=== PATIENT | female | born 1960 | race Caucasian/White ===

== ENCOUNTER 2021-11-01 16:18 | Emergency (ER) | payer OTHER, SELFPAY ==
--- NOTE | 2021-11-01 | ECG_ITS ---
Test Reason : A-FIB Blood Pressure : / mmHG Vent. Rate : 086 BPM Atrial Rate : 000 BPM P-R Int : 000 ms QRS Dur : 098 ms QT Int : 382 ms P-R-T Axes : 000 035 -86 degrees QTc Int : 457 ms Atrial fibrillation with a competing junctional pacemaker Incomplete right bundle branch block ST & T wave abnormality, consider inferior ischemia ST & T wave abnormality, consider anterolateral ischemia Abnormal ECG No previous ECGs available Referred By: Generic ED Physician Electronically Signed By:STEPHON CASTAÑEDA MD
[2021-11-01 16:33] VITALS: BP 122/80; PULSE 97; RESP 18; TEMP 36.6; O2SAT 98; BMI 31.6
[2021-11-01 16:53] LABS: MANUAL DIFF FLAG NO
[2021-11-01 17:10] LABS: Basophils Absolute Auto 0.1 X10*3/uL (0.0-0.2); Basophils Percent Auto 0.8 % (0-2); Eosinophils Absolute Auto 0.1 X10*3/uL (0.0-0.4); Eosinophils Percent Auto 1.1 % (0-4); Hematocrit 40.5 % (37.0-47.0); Hemoglobin 14.4 g/dl (12.0-16.0); Imm Gran Abs Auto 0.04 X10*3/uL (0.00-0.03); Imm Gran Pct Auto 0.5 % (0.0-0.4); Lymphocytes Absolute Auto 0.7 X10*3/uL (1.2-4.9); Lymphocytes Percent Auto 8.9 % (20-40); Mean Corpuscular HGB Conc 35.6 g/dl (31.0-35.0); Mean Corpuscular Hemoglobin 40.9 pg (27.0-33.0); Monocytes Absolute Auto 0.6 X10*3/uL (0.1-1.2); Monocytes Percent Auto 7.3 % (2-11); NRBC Pct Auto 0.3 /100WBC (0.0-0.2); Neutrophils Absolute Auto 6.5 x10*3/uL (2.0-8.3); Neutrophils Percent Auto 81.4 % (45-73); Platelet Count 127 X10*3/uL (160-400); Red Blood Count 3.52 X10*6/uL (4.20-5.50); Red Cell Distribution Width 12.2 % (11.0-16.0)
[2021-11-01 17:25] LABS: Alanine Aminotransferase 54 U/L (0-31); Albumin Level 3.9 g/dL (3.5-5.0); Alkaline Phosphatase 110 U/L (39-117); Anion Gap 17 (12-20); Aspartate Amino Transferase 60 U/L (5-31); Bilirubin Total 1.6 mg/dL (0.0-1.0); Blood Urea Nitrogen 9 mg/dL (9-16); Calcium 9.3 mg/dL (8.4-10.2); Carbon Dioxide 23 mmol/L (22-29); Chloride 98 mmol/L (96-108); Estimated Glomerular Filt Rate 43; Glucose Random 146 mg/dL (60-115); Potassium 4.3 mmol/L (3.3-5.1); Sodium 134 mmol/L (135-145); Total Protein 7.8 g/dL (6.5-8.0)
[2021-11-01 17:28] LABS: Mean Corpuscular Volume 115.1 fL (80.0-98.0)
== END 2021-11-01 20:48 | disposition left against medical advice (07) ==
PROVIDERS: Emergency Provider Emergency Medicine; PCP Internal Medicine
DX: I48.91 Unspecified atrial fibrillation (principal); I95.9 Hypotension, unspecified
CPT/HCPCS: 36415; 80053; 85025; 93005; 99283

== ENCOUNTER 2022-10-21 13:11 | Outpatient (REF) | payer OTHER, SELFPAY ==
[2022-10-21 13:22] LABS: MANUAL DIFF FLAG NO
[2022-10-21 14:12] LABS: Basophils Absolute Auto 0.1 X10*3/uL (0.0-0.2); Basophils Percent Auto 2.3 % (0-2); Eosinophils Absolute Auto 0.1 X10*3/uL (0.0-0.4); Eosinophils Percent Auto 2.5 % (0-4); Hematocrit 40.1 % (37.0-47.0); Imm Gran Abs Auto 0.02 X10*3/uL (0.00-0.03); Imm Gran Pct Auto 0.4 % (0.0-0.4); Lymphocytes Absolute Auto 0.7 X10*3/uL (1.2-4.9); Mean Corpuscular HGB Conc 34.9 g/dl (31.0-35.0); Mean Corpuscular Hemoglobin 38.4 pg (27.0-33.0); Mean Corpuscular Volume 109.9 fL (80.0-98.0); Mean Platelet Volume 9.5 fL (9.4-12.3); Monocytes Absolute Auto 0.7 X10*3/uL (0.1-1.2); Monocytes Percent Auto 13.4 % (2-11); Neutrophils Absolute Auto 3.2 x10*3/uL (2.0-8.3); Neutrophils Percent Auto 66.4 % (45-73); Platelet Count 311 X10*3/uL (160-400); Red Blood Count 3.65 X10*6/uL (4.20-5.50); Red Cell Distribution Width 11.8 % (11.0-16.0); White Blood Count 4.9 X10*3/uL (4.8-10.8)
[2022-10-21 15:09] LABS: Alanine Aminotransferase 33 U/L (0-31); Albumin Level 3.5 g/dL (3.5-5.0); Alkaline Phosphatase 87 U/L (39-117); Anion Gap 14 (12-20); Aspartate Amino Transferase 25 U/L (5-31); Bilirubin Total 0.7 mg/dL (0.0-1.0); Blood Urea Nitrogen 10 mg/dL (9-16); Calcium 9.5 mg/dL (8.4-10.2); Carbon Dioxide 26 mmol/L (22-29); Chloride 101 mmol/L (96-108); Estimated Glomerular Filt Rate 55; Glucose Random 112 mg/dL (60-115); Potassium 4.5 mmol/L (3.3-5.1); Sodium 136 mmol/L (135-145); Total Protein 6.9 g/dL (6.5-8.0)
[2022-10-21 15:26] LABS: Free T4 (Free Thyroxine) 1.09 ng/dL (0.71-1.85); Thyroid Stimulating Hormone 3.31 uIU/mL (0.32-4.0)
[2022-10-21 15:28] LABS: Magnesium 1.4 mg/dL (1.6-2.6)
== END 2022-10-21 13:12 | disposition home or self-care (01) ==
LOC: HO.LAB 13:11
PROVIDERS: PCP Internal Medicine; Visit Provider Internal Medicine
DX: I48.91 Unspecified atrial fibrillation (principal); E03.9 Hypothyroidism, unspecified; D69.6 Thrombocytopenia, unspecified; E87.1 Hypo-osmolality and hyponatremia
CPT/HCPCS: 36415; 80053; 83735; 84439; 84443; 85025

== ENCOUNTER 2022-11-28 13:03 | Outpatient (REF) | payer OTHER, SELFPAY ==
[2022-11-28 15:37] LABS: Anion Gap 14 (12-20); Blood Urea Nitrogen 21 mg/dL (9-16); Calcium 9.9 mg/dL (8.4-10.2); Carbon Dioxide 25 mmol/L (22-29); Chloride 103 mmol/L (96-108); Estimated Glomerular Filt Rate 56; Glucose Random 105 mg/dL (60-115); Magnesium 1.9 mg/dL (1.6-2.6); Potassium 4.1 mmol/L (3.3-5.1); Sodium 138 mmol/L (135-145)
[2022-11-28 15:50] LABS: Free T4 (Free Thyroxine) 0.92 ng/dL (0.71-1.85); Vitamin B12 397 pg/mL (200-900)
== END 2022-11-28 13:04 | disposition home or self-care (01) ==
LOC: HO.LAB 13:03
PROVIDERS: PCP Internal Medicine; Visit Provider Internal Medicine
DX: E83.42 Hypomagnesemia (principal); I48.91 Unspecified atrial fibrillation; E53.8 Deficiency of other specified B group vitamins
CPT/HCPCS: 36415; 80048; 82607; 83735; 84439; 84443

== ENCOUNTER 2023-01-21 13:11 | Outpatient (REF) | payer OTHER, SELFPAY ==
[2023-01-21 13:21] LABS: MANUAL DIFF FLAG NO
[2023-01-21 14:10] LABS: Basophils Absolute Auto 0.1 X10*3/uL (0.0-0.2); Basophils Percent Auto 1.7 % (0-2); Eosinophils Absolute Auto 0.3 X10*3/uL (0.0-0.4); Eosinophils Percent Auto 4.8 % (0-4); Hemoglobin 14.7 g/dl (12.0-16.0); Imm Gran Abs Auto 0.02 X10*3/uL (0.00-0.03); Imm Gran Pct Auto 0.3 % (0.0-0.4); Lymphocytes Absolute Auto 1.1 X10*3/uL (1.2-4.9); Lymphocytes Percent Auto 18.3 % (20-40); Mean Corpuscular HGB Conc 32.7 g/dl (31.0-35.0); Mean Corpuscular Hemoglobin 30.9 pg (27.0-33.0); Mean Corpuscular Volume 94.7 fL (80.0-98.0); Mean Platelet Volume 9.9 fL (9.4-12.3); Monocytes Absolute Auto 0.7 X10*3/uL (0.1-1.2); Monocytes Percent Auto 11.6 % (2-11); Neutrophils Absolute Auto 3.7 x10*3/uL (2.0-8.3); Neutrophils Percent Auto 63.3 % (45-73); Platelet Count 234 X10*3/uL (160-400); Red Blood Count 4.75 X10*6/uL (4.20-5.50); Red Cell Distribution Width 11.6 % (11.0-16.0); White Blood Count 5.8 X10*3/uL (4.8-10.8)
[2023-01-21 15:40] LABS: Alanine Aminotransferase 20 U/L (0-31); Albumin Level 3.8 g/dL (3.5-5.0); Alkaline Phosphatase 150 U/L (39-117); Anion Gap 14 (12-20); Aspartate Amino Transferase 21 U/L (5-31); Bilirubin Total 0.6 mg/dL (0.0-1.0); Blood Urea Nitrogen 22 mg/dL (9-16); Calcium 10.7 mg/dL (8.4-10.2); Carbon Dioxide 25 mmol/L (22-29); Chloride 103 mmol/L (96-108); Cholesterol 184 mg/dL; Estimated Glomerular Filt Rate > 60; Glucose Fasting 99 mg/dL (60-99); HDL Cholesterol 49 mg/dL; LDL Cholesterol Calculated 115 mg/dl; Magnesium 1.9 mg/dL (1.6-2.6); Potassium 4.2 mmol/L (3.3-5.1); Sodium 138 mmol/L (135-145); Total Protein 8.2 g/dL (6.5-8.0); Triglycerides 102 mg/dL
[2023-01-21 15:56] LABS: Free T4 (Free Thyroxine) 0.97 ng/dL (0.71-1.85)
== END 2023-01-21 13:12 | disposition home or self-care (01) ==
LOC: HO.LAB 13:11
PROVIDERS: PCP Internal Medicine; Visit Provider Internal Medicine
DX: I48.91 Unspecified atrial fibrillation (principal); E03.9 Hypothyroidism, unspecified; I12.9 Hypertensive chronic kidney disease with stage 1 through stage 4 chronic kidney disease, or unspecified chronic kidney disease; N18.9 Chronic kidney disease, unspecified
CPT/HCPCS: 36415; 80053; 80061; 83735; 84439; 84443; 85025

== ENCOUNTER 2023-02-17 13:48 | Outpatient (AMB) | payer OTHER, SELFPAY ==
[2023-02-17 14:06] VITALS: BP 160/90; BMI 27.0
--- NOTE | 2023-02-17 14:06 | A.OFFVIS_ITS ---
Intake Vital Signs 02/17/23 14:06 Height 5 ft 9 in Weight 182 lb 15.739 oz BMI 27.0 BP 160/90 H Blood Pressure Location Lt brachial Position Sitting Intake Visit Reasons: NPV/Croke/AFIB Intake Note: npv/croke/afib [employer] Consultant Required: No Allergies codeine Allergy (Verified 02/17/23 14:15) Unknown Medication List - Last Reconciled 02/17/23 by Jluis Todd MD apixaban (Eliquis) 5 mg PO BID levothyroxine 25 mcg PO DAILY metoprolol tartrate 50 mg PO DAILY HPI HPI Comments History of Present Illness Details Thank you for referring Maria Elena in cardiology consultation today for management of atrial fibrillation. 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 She was admitted in September at [facility] with severe dehydration related to gastroenteritis. At that time she was told that she was in atrial fibrillation. However reviewing her EKG from last October at [facility] she was in atrial fibrillation at that time. Since then her medications with change due to what appears to be acute kidney injury and hypertension. She was taken off her lisinopril and nifedipine and reducing metoprolol dose. She was advised to follow-up with you. At that time she was started on Eliquis therapy and metoprolol has been gradually increased. She says a blood pressure has been increasing ever since. She has strong family his tory of atrial fibrillation in the sister who has atrial fibrillation. Both her parents had congestive heart failure and possible atrial fibrillation. She says she has had hypertension treated for about 8 years. She currently denies any symptoms of palpitations. Denies also symptoms of any exertional fatigue or shortness of breath. No orthopnea, PND, leg edema. She denies any lightheadedness, syncope. No bleeding issues or neurologic events. She has been taking all her medications regularly, currently taking metoprolol 100 mg the morning and 75 mg at nighttime. [facility] Medical History HTN (hypertension) Persistent atrial fibrillation Family History Sister A-fib Father CHF (congestive heart failure) Mother CHF (congestive heart failure) Social History Alcohol intake: never Patient Tobacco Use Status: Never used Tobacco Review of Systems Const Denies chills, Denies daytime sleepiness, Denies fatigue, Denies fever(s), Denies frequent falls, Denies night sweats, Denies snoring, Denies weakness, Denies weight gain and Denies weight loss Eyes Denies loss of vision ENT Denies dizziness and Denies hearing loss Card Denies chest pain, Denies chest pain with activity, Denies syncope, Denies rapid heart rate, Denies edema, Denies claudication, Denies leg edema, Denies lightheadedness, Denies palpitations, Denies dyspnea, Denies dyspnea on exertion and Denies orthopnea Resp Denies cough, Denies excessive phlegm production, Denies dyspnea, Denies dyspnea on exertion, Denies snoring and Denies wheezing GI Denies abdominal pain, Denies hematochezia, Denies change in bowel habits, Denies change in stool character, Denies heartburn, Denies nausea and Denies vomiting Denies hematuria, Denies urinary frequency and Denies dysuria Musc Denies arthralgias, Denies muscle weakness, Denies numbness and Denies tingling Skin/Breast Denies nail changes and Denies rash Neuro Denies Abnormal speech present, Denies dizziness, Denies syncope, Denies frequent falls, Denies loss of vision, Denies memory loss, Denies numbness, Denies tingling and Denies weakness Psych Denies depression and Denies memory loss Endo Denies fatigue and Denies palpitations Aller/Immun Denies wheezing Physical Exam Vital Signs: Last Vital Signs BP 160/90 H 02/17/23 14:06 BMI result Body Mass Index 27.0 Const General: cooperative, comfortable, no acute distress, alert, awake and well groomed Nutritional Appearance: overweight Orientation/consciousness: patient oriented x3 Limitations: no limitations HEENT Head: Yes normocephalic and Yes atraumatic Neck Neck: Yes trachea midline, Yes supple and Yes no JVD Resp Effort & Inspection: normal respiratory effort Auscultation: clear to auscultation bilaterally Cardio Jugular venous distension: no JVD Palpation: normal PMI Rhythm: abnormal rhythm irregularly irregular Heart sounds: S1 normal heart sound present, S2 normal heart sound present, no click, no gallops, no murmurs and no rubs GI Auscultation: normal bowel sounds Skin General skin exam: no rashes or lesions noted Neuro General: patient oriented x3 and no focal motor deficits Speech: No Abnormal speech present Extrem General: Yes no clubbing, cyanosis or edema Psych Appearance: grossly normal Office Procedures EKG Details: EKG shows atrial fibrillation with incomplete right bundle-branch block with diffuse ST T wave changes which may suggest repolarization abnormality [id number], Complete Assessment & Plan Assessment & Plan (1) Persistent atrial fibrillation: Code(s): I48.19 - Other persistent atrial fibrillation Plan: Persistent atrial fibrillation this middle-aged woman with prior history of hypertension. Unknown biatrial chamber size. She thinks she had an echocardiogram she was hospitalized at [facility]. Will try to obtain the same. If not will obtain echocardiogram to assess LV systolic function and biatrial chamber size that will determine further therapy. Meanwhile will increase metoprolol to 100 mg b.i.d. both for better rate control as well as for better blood pressure control. Advised to monitor blood pressure at home, see below. She has appropriately been started on oral anticoagulation therapy with Eliquis. Risk of thromboembolic complication was discussed with her. Pathophysiology of atrial fibrillation was discussed. We discussed in general recent scientific data suggesting in patients with new onset atrial fibrillation although it seems like she might have had atrial fibrillation for greater than a year to pursue rhythm control approach. However if she has significant biatrial enlargement will require antiarrhythmic drug support therapy prior to performing synchronized cardioversion. This was discussed with her. She currently has no symptoms related to atrial fibrillation and has no signs of cardiac decompensation. Semi annual renal function test should be pursued while she is on Eliquis therapy (2) HTN (hypertension): Code(s): I10 - Essential (primary) hypertension Plan: Hypertension which is borderline elevated. Maximize metoprolol therapy. If she remains with elevated blood pressure consider restarting lisinopril therapy. Importance of good blood pressure control was discussed. She understands agrees. Low-salt diet was discussed. Maintain activity level as tolerated. Will follow up in the clinic in 4 weeks time, sooner p.r.n.. Orders: Orders ECG 3 day holter monitor 2 Weeks I48.19 - Other persistent atrial fibrillation Medications: New metoprolol tartrate 100 mg PO BID 60 tabs 3RF Coding Level of Care Code New Pt Level 4 (88288) Diagnoses Persistent atrial fibrillation I48.19 HTN (hypertension) I10 CPT Codes EKG - CPT: 97215-[id number], Complete ([id number])
== END 2023-02-17 14:46 | disposition home or self-care (01) ==
PROVIDERS: Visit Provider Internal Medicine Cardiovascular Disease
DX: I48.19 Other persistent atrial fibrillation (principal); I10 Essential (primary) hypertension
CPT/HCPCS: 93010; 99204

== ENCOUNTER → 2023-02-17 13:48 | Outpatient (BNVA) | payer OTHER, SELFPAY | PROVIDERS: Visit Provider Internal Medicine Cardiovascular Disease | DX: I48.19 Other persistent atrial fibrillation (principal); I10 Essential (primary) hypertension | CPT/HCPCS: 93005; 99202 ==

== ENCOUNTER 2023-02-28 12:42 | Outpatient (REF) | payer OTHER, SELFPAY ==
--- NOTE | ~2023-02-28 | MM_ITS ---
EXAMINATION: BONE DENSITOMETRY CLINICAL INDICATION: Menopausal. COMPARISON: This is the patient's baseline examination. TECHNIQUE: Using a Qritiqr DXA System (software version: 13.1) manufactured by [employer], dual-energy x-ray absorptiometry was performed of the lumbar spine and left hip. The images are of good technical quality. Summary results are attached. FINDINGS: LEFT FEMUR, NECK: BMD 0.871 g/cm2, Z-score -0.1, T-score -1.2, osteopenia. LEFT FEMUR, TOTAL: BMD 0.862 g/cm2, Z-score -0.4, T-score -1.2, osteopenia. AP SPINE L1-L4: BMD 1.081 g/cm2, Z-score 0.1, T-score -0.8, normal. IDENTIFIED RISK FACTORS: Menopause, secondary osteoporosis. HISTORY OF FRACTURE: None listed. MEDICATIONS: None listed. MM/XR DEXA axial skeleton IMPRESSION: 1. DIAGNOSIS: Osteopenia based on the lowest T-score value of -1.2 in the femoral neck and total femur applying World Health Organization criteria. 2. 10-YEAR FRACTURE RISK PREDICTION, FRAX: Major osteoporotic fracture (clinical spine, forearm, hip or shoulder) 8.1%. Hip fracture 0.7%. 3. Treatment Recommendations: NOF guidelines recommend consideration for treatment in postmenopausal women and men age 50 and older presenting with the following: -A hip or vertebral (clinical or morphometric) fracture. -T-score less than or equal to -2.5 at the femoral neck or spine after appropriate evaluation to exclude secondary causes. -Low bone mass at the hip or spine and a 10-year fracture probability by FRAX of greater than or equal to 3% for hip fracture or greater than or equal to 20% for major osteoporotic fracture based on the [place] adapted WHO algorithm. 4. Other Recommendations: All treatment decisions require clinical judgment and consideration of individual patient factors, including patient preferences, comorbidities, previous drug use, risk factors not captured in the FRAX model (e.g. frailty, falls, vitamin D deficiency, increased bone turnover, interval significant decline in bone density) and possible under or overestimation of fracture risk by FRAX. Additional medical evaluation for secondary cause of low bone mineral density may be appropriate. FUTURE SCAN RECOMMENDATION: People with diagnosed cases of osteoporosis or at high risk for fracture should have regular bone mineral density tests. For patients eligible for Medicare, routine testing is allowed once every 2 years. The testing frequency can be increased to one year for patients who have rapidly progressing disease, those who are receiving or discontinuing medical therapy to restore bone mass, or have additional risk factors.
--- NOTE | ~2023-02-28 | MM_ITS ---
EXAMINATION: MM SCREENING DIGITAL BREAST TOMOSYNTHESIS, BILATERAL CLINICAL INFORMATION: Screening. Asymptomatic. The lifetime risk of breast cancer based on the Tyrer-Cuzick Model is 7.7%. COMPARISON: Mammography: This study is compared with prior exams dating back to 2015. TECHNIQUE: Digital breast tomosynthesis is performed in both the craniocaudal and mediolateral oblique views along with computer-aided detection (CAD). Synthesized 2D images are generated from the tomosynthesis. FINDINGS: The breasts are almost entirely fatty (ACR BI-RADS breast composition Category a). There are no significant masses, abnormal calcifications, or other abnormalities. MM/MM tomosynthesis screening BI IMPRESSION: No mammographic evidence of malignancy. ASSESSMENT: BI-RADS BI-RADS 1 - Negative RECOMMENDATION: Routine annual mammography screening. 1 year F/U This examination should not preclude the clinical evaluation of a suspicious palpable abnormality. This patient's information was entered into a reminder system with a target due date for their next mammogram.
[2023-02-28 15:44] LABS: Free T4 (Free Thyroxine) 1.02 ng/dL (0.71-1.85); Thyroid Stimulating Hormone 3.72 uIU/mL (0.32-4.0)
== END 2023-02-28 12:43 | disposition home or self-care (01) ==
LOC: HO.MAMMO 12:42
PROVIDERS: PCP Internal Medicine; Visit Provider Internal Medicine
DX: Z12.31 Encounter for screening mammogram for malignant neoplasm of breast (principal); Z13.820 Encounter for screening for osteoporosis; E03.9 Hypothyroidism, unspecified; Z78.0 Asymptomatic menopausal state
CPT/HCPCS: 36415; 77063; 77067; 77080; 84439; 84443

== ENCOUNTER → 2023-02-28 13:00 | Outpatient (BNV) | payer OTHER, SELFPAY | PROVIDERS: PCP Internal Medicine; Visit Provider Radiology Diagnostic Radiology | DX: Z12.31 Encounter for screening mammogram for malignant neoplasm of breast (principal); M81.0 Age-related osteoporosis without current pathological fracture | CPT/HCPCS: 77063; 77067 ==

== ENCOUNTER → 2023-03-07 13:21 | Outpatient (REF) | payer OTHER, SELFPAY ==
--- NOTE | 2023-03-07 13:24 | HM_ITS ---
Conclusion: 1. Patient was monitored for total period of 3 days 2. Baseline rhythm is atrial fibrillation with average heart of 74 beats per minute with good rate control 3. Rare PVCs noted 4. No significant pauses noted 5. No patient reported symptoms MTDD
== END ==
LOC: HO.CARD 13:21
PROVIDERS: Visit Provider Internal Medicine Cardiovascular Disease
DX: I48.19 Other persistent atrial fibrillation (principal)
CPT/HCPCS: 93242

== ENCOUNTER → 2023-03-07 13:24 | Outpatient (BNV) | payer OTHER, SELFPAY | PROVIDERS: Visit Provider Internal Medicine Cardiovascular Disease | DX: I48.19 Other persistent atrial fibrillation (principal) | CPT/HCPCS: 93244 ==

== ENCOUNTER 2023-03-27 13:31 | Outpatient (AMB) | payer OTHER, SELFPAY ==
[2023-03-27 13:45] VITALS: BP 136/80; PULSE 82; BMI 26.7
--- NOTE | 2023-03-27 13:45 | A.OFFVIS_ITS ---
Intake Vital Signs 03/27/23 13:45 Height 5 ft 9 in Weight 180 lb 12.465 oz BMI 26.7 BP 136/80 Blood Pressure Location Lt brachial Position Sitting Pulse 82 Intake Visit Reasons: 4 wk fu Intake Note: 4 week follow-up feeling good Car Audio Installer Required: No Allergies codeine Allergy (Verified 02/17/23 14:15) Unknown Medication List - Last Reconciled 03/27/23 by Jluis Todd MD apixaban (Eliquis) 5 mg PO BID levothyroxine 25 mcg PO DAILY metoprolol tartrate 100 mg PO BID HPI HPI Comments History of Present Illness Details Maria Elena comes for follow-up. Echocardiogram reviewed from [facility] showed normal LV systolic function with mild left atrial enlargement without any major valvular abnormalities. Holter monitor shows good rate control. She continues to have no symptoms as she reports. She has cut down on alcohol intake. She remains anxious. Denies any orthopnea, PND, leg edema. No lightheadedness, syncope. No bleeding issues or neurologic events [facility] Medical History HTN (hypertension) Persistent atrial fibrillation Family History Sister A-fib Father CHF (congestive heart failure) Mother CHF (congestive heart failure) Social History Alcohol intake: never Patient Tobacco Use Status: Never used Tobacco Review of Systems Const Denies chills, Denies fatigue, Denies fever(s), Denies frequent falls, Denies weakness, Denies weight gain and Denies weight loss ENT Denies dizziness Card Denies chest pain, Denies leg edema, Denies lightheadedness, Denies palpitations, Denies dyspnea, Denies dyspnea on exertion, Denies orthopnea and Denies other (loss of consciousness) Resp Denies cough, Denies dyspnea and Denies dyspnea on exertion GI Denies hematochezia and Denies change in stool character Musc Denies abnormal gait, Denies muscle weakness, Denies numbness, Denies radiating pain into limb and Denies tingling Neuro Denies Abnormal speech present, Denies abnormal gait, Denies dizziness, Denies frequent falls, Denies numbness, Denies tingling and Denies weakness Endo Denies fatigue and Denies palpitations Physical Exam Vital Signs: Last Vital Signs Pulse 82 03/27/23 13:45 BP 136/80 03/27/23 13:45 BMI result Body Mass Index 26.7 Const General: cooperative, comfortable, no acute distress, alert, awake and well groomed Nutritional Appearance: overweight Orientation/consciousness: patient oriented x3 Limitations: no limitations Neck Neck: Yes trachea midline, Yes supple and Yes no JVD Resp Effort & Inspection: normal respiratory effort Auscultation: clear to auscultation bilaterally Cardio Jugular venous distension: no JVD Palpation: normal PMI Rhythm: abnormal rhythm irregularly irregular Heart sounds: S1 normal heart sound present, S2 normal heart sound present, no click, no gallops, no murmurs and no rubs GI Auscultation: normal bowel sounds Skin General skin exam: no rashes or lesions noted Neuro General: patient oriented x3 and no focal motor deficits Speech: No Abnormal speech present Extrem General: Yes no clubbing, cyanosis or edema Psych Appearance: grossly normal Assessment & Plan Assessment & Plan (1) Persistent atrial fibrillation: Code(s): I48.19 - Other persistent atrial fibrillation Plan: Persistent rate control atrial fibrillation without any overt symptoms or signs of congestive heart failure. We discussed about management of atrial fibrillation details. As per the most recent data, rhythm control approach should be pursued especially at her age given recent onset atrial fibrillation to reduce risk of future development of heart failure and persistent atrial fibrillation. This was discussed with her. We discussed about synchronized c ardioversion. We discussed about the procedure including benefits, risks and alternatives. She is anxious but understands and agrees. Will schedule it for next week. Continue full oral anticoagulation with Eliquis 5 mg b.i.d. with CHADSVASc score of 2 with left atrial enlargement. Further treatment based on response to cardioversion and clinical response. She understands and agrees. Would avoid antiarrhythmic drug therapy at this point time. Uninterrupted oral anticoagulation was discussed. Will follow up in the clinic after cardioversion in 4 weeks. Thank you for allowing me to partake in the care Orders: Orders Cardioversion 1 Week I48.19 - Other persistent atrial fibrillation Coding Level of Care Code Est Pt Level 4 (58172) Diagnoses Persistent atrial fibrillation I48.19
== END 2023-03-27 14:37 | disposition home or self-care (01) ==
PROVIDERS: PCP Internal Medicine; Visit Provider Internal Medicine Cardiovascular Disease
DX: I48.19 Other persistent atrial fibrillation (principal)
CPT/HCPCS: 99214

== ENCOUNTER → 2023-03-27 13:31 | Outpatient (BNVA) | payer OTHER, SELFPAY | PROVIDERS: PCP Internal Medicine; Visit Provider Internal Medicine Cardiovascular Disease | DX: I48.19 Other persistent atrial fibrillation (principal); Z79.01 Long term (current) use of anticoagulants | CPT/HCPCS: 99212 ==

== ENCOUNTER 2023-04-02 12:00 | Day surgery (SDC) | payer OTHER, SELFPAY ==
--- NOTE | 2023-04-01 11:41 | HO.ANESPROP2 ---
Documented by User: Shaniqua Stevenson NP 04/01/23 11:43 HPI - Anesthesia Eval Consult details Narrative: 62yo F for Cardioversion Eliquis for afib PMFSH Active Problems Active Problems: All Active Problems (Updated 02/17/23 @ 14:39 by Jluis Todd MD) HTN (hypertension) (Acute) Persistent atrial fibrillation (Acute) Past Medical History Medical History HTN (hypertension) Persistent atrial fibrillation Family History Family History Sister A-fib Father CHF (congestive heart failure) Mother CHF (congestive heart failure) Social History Social History Alcohol intake: never Patient Tobacco Use Status: Former Tobacco user Meds Allergies Allergy/AdvReac Type Severity Reaction Status Date / Time codeine Allergy Unknown Verified 02/17/23 14:15 Home Medications Medication Instructions Recorded Confirmed Last Taken Type apixaban 5 mg tablet (Eliquis) 5 mg PO BID 02/17/23 04/02/23 04/02/23 09:00 History levothyroxine 25 mcg tablet 25 mcg PO DAILY 02/17/23 04/02/23 04/02/23 09:00 History Exam Exam Date and Time: April 01, 2023 1141 Pertinent Lab Results Pertinent Lab Results: Laboratory Tests 01/21/23 01/21/23 13:19 13:19 WBC 5.8 Hgb 14.7 Hct 45.0 Plt Count 234 Sodium 138 Potassium 4.2 Chloride 103 Carbon Dioxide 25 BUN 22 H Creatinine 0.88 Narrative Narrative: Holter 02/2023 Conclusion: 1. Patient was monitored for total period of 3 days 2. Baseline rhythm is atrial fibrillation with average heart of 74 beats per minute with good rate control 3. Rare PVCs noted 4. No significant pauses noted 5. No patient reported symptoms Assessment and Plan Assessment Anesthesia Assessment: Chart Reviewed Documented by User: Anand Dyer MD 04/02/23 17:21 [facility] Past Medical History Medical History HTN (hypertension) Persistent atrial fibrillation Functional capacity: independent ambulation Family History Family History Sister A-fib Father CHF (congestive heart failure) Mother CHF (congestive heart failure) Family history of problems with anesthesia: No Surgical History History of Problems with Anesthesia: No Social History Social History Alcohol intake: never Patient Tobacco Use Status: Former Tobacco user Meds Allergies Allergy/AdvReac Type Severity Reaction Status Date / Time codeine Allergy Unknown Verified 02/17/23 14:15 Home Medications Medication Instructions Recorded Confirmed Last Taken Type apixaban 5 mg tablet (Eliquis) 5 mg PO BID 02/17/23 04/02/23 04/02/23 09:00 History levothyroxine 25 mcg tablet 25 mcg PO DAILY 02/17/23 04/02/23 04/02/23 09:00 History Exam Airway Mallampati Class: III Neck ROM: Full Loose/Missing/Broken Teeth: Yes Assessment and Plan Assessment Anesthesia Assessment: Anesthesia Plan Discussed Final Anesthetic Review Family History of Problems with Anesthesia: No History of Problems with Anesthesia: No NPO: Yes ASA Class: III Final Preanesthetic Review: Meds/Allgs Chart Reviewed, Consent Obtained/Reviewed and Anes Risks/Benef Reviewed Patient Risk: Intermediate Procedure Risk: Intermediate Anesthetic Plan Anesthetic Plan: MAC: and Agree w/ Assess. and Plan Disposition: Standard PACU
[2023-04-02 12:33] VITALS: BMI 27.4
[2023-04-02] MEDS: Lactated Ringers 1,000 ML 100 ML IVCONT (13:08)
--- NOTE | 2023-04-02 14:10 | MHC.SHP ---
Pre-Procedural Eval Section A Date of Service: 04/02/23 The patient is an INPATIENT: No Changes since office visit: Yes Patient answered all questions; No Cold of Flu in the past 2 weeks, No New Medical Problems and No Changes in Medication The History & Physical has been completed within 30 days and I have reviewed it.: Yes Section B Chief Complaint: Other persistent atrial fibrillation Allergies: Allergies Allergy/AdvReac Type Severity Reaction Status Date / Time codeine Allergy Unknown Verified 02/17/23 14:15 Plan I have reviewed the history and physical and performed a pertinent physical examination on my patient. No changes have occurred unless specified. Time Spent With Patient Time: Total time managing care of this patient today ____ minutes.
--- NOTE | 2023-04-02 14:30 | ECG_ITS ---
Test Reason : s/p cardioversion Blood Pressure : / mmHG Vent. Rate : 054 BPM Atrial Rate : 054 BPM P-R Int : 156 ms QRS Dur : 094 ms QT Int : 434 ms P-R-T Axes : 048 046 020 degrees QTc Int : 411 ms Sinus bradycardia RSR' or QR pattern in V1 suggests right ventricular conduction delay Borderline ECG When compared with ECG of 01-NOV-2021 16:32, Sinus rhythm has replaced Atrial fibrillation Vent. rate has decreased BY 32 BPM T wave inversion no longer evident in Inferior leads T wave inversion no longer evident in Anterolateral leads QT has shortened Referred By: Jluis Todd Electronically Signed By:OLGA LIDIA LEZAMA
[2023-04-02 14:51] VITALS: BP 123/84; PULSE 58; RESP 15; TEMP 36.6; O2SAT 97
--- NOTE | 2023-04-02 14:59 | HO.CARDIVERS ---
Cardioversion Procedure Note Cardioversion Date of Procedure: Today Ordering Provider: Myself Performing Provider: Myself Indication for Procedure: Recent onset persistent atrial fibrillation Pre-Op Diagnosis: Same Post-Op Diagnosis: Normal sinus rhythm Performed with Transesophageal Echo: No History: See my office note Consent: Verbal and Written consent was obtained from the patient before starting and after confirming oral anticoagulation use. The patient was made aware of the risk of synchronized cardioversion including of benefits and alternatives Procedure: After consent obtained, cardioversion pads were attached in anteroposterior configuration and the patient was sedated by the anesthesia team. Once adequate sedation achieved, patient was delivered 200 joules of biphasic synchronized energy in anteroposterior configuration Complications: None Impression: Successful conversion to sinus rhythm Recommendations: 1. Continue current medication including oral anticoagulation therapy 2. Twelve lead EKG 3. Follow up in the clinic after Holter monitor
[2023-04-02 15:06] VITALS: BP 123/85; PULSE 53; RESP 18; TEMP 36.2; O2SAT 97
== END 2023-04-02 13:20 | disposition home or self-care (01) ==
PROVIDERS: PCP Internal Medicine; Visit Provider Internal Medicine Cardiovascular Disease
PROC: 5A2204Z Restoration of Cardiac Rhythm, Single (ICD-10-PCS; principal; 2023-04-02 14:00)
DX: I48.19 Other persistent atrial fibrillation (principal); Z79.01 Long term (current) use of anticoagulants; I10 Essential (primary) hypertension; Z79.899 Other long term (current) drug therapy; Z88.5 Allergy status to narcotic agent
CPT/HCPCS: 92960; 93005

== ENCOUNTER → 2023-04-02 12:00 | Outpatient (BNV) | payer OTHER, SELFPAY | PROVIDERS: PCP Internal Medicine; Visit Provider Internal Medicine Cardiovascular Disease | DX: I48.19 Other persistent atrial fibrillation (principal) | CPT/HCPCS: 92960 ==

== ENCOUNTER → 2023-04-16 13:24 | Outpatient (REF) | payer OTHER, SELFPAY ==
--- NOTE | 2023-04-16 13:29 | HM_ITS ---
* Total monitoring time 3 days. * Underlying rhythm is sinus. Average ventricular rate 56/Min. Range 45 to 75/Min. About 80% the time, rate less than 60/min. * Rare supraventricular ectopy. * Rare ventricular ectopy. 2 brief runs, longest 5 beats. * No significant pauses or AV blocks. * No patient markers. Diary not submitted. MTDD
== END ==
LOC: HO.CARD 13:24
PROVIDERS: Visit Provider Internal Medicine Cardiovascular Disease
DX: I48.19 Other persistent atrial fibrillation (principal)
CPT/HCPCS: 93242

== ENCOUNTER → 2023-04-16 13:29 | Outpatient (BNV) | payer OTHER, SELFPAY | PROVIDERS: Visit Provider Internal Medicine | DX: I48.19 Other persistent atrial fibrillation (principal) | CPT/HCPCS: 93244 ==

== ENCOUNTER 2023-05-09 12:56 | Outpatient (AMB) | payer OTHER, SELFPAY ==
[2023-05-09 13:01] VITALS: BP 152/80; BMI 27.6
--- NOTE | 2023-05-09 13:01 | MHC.OFFVIS ---
Intake Vital Signs 05/09/23 13:01 Height 5 ft 8 in Weight 181 lb 3.52 oz BMI 27.6 BP 152/80 H Blood Pressure Location Lt brachial Position Sitting Intake Visit Reasons: Follow up post cardioversion and holter Intake Note: f/u post cardioversion and holter Network Architect Manager Required: No Allergies codeine Allergy (Verified 05/09/23 13:06) Unknown Medication List - Last Reconciled 05/09/23 by Ryanne Dominguez NP-C apixaban (Eliquis) 5 mg PO BID cholecalciferol (vitamin D3) 25 mcg PO DAILY levothyroxine 25 mcg PO DAILY lisinopril 5 mg PO DAILY metoprolol tartrate 100 mg PO BID HPI Follow up post cardioversion and holter HPI Details Cee is a 62-year-old female with past medical history of hypertension, new or persistent atrial fibrillation and underwent a cardioversion on 04/02/2023 with successful conversion to sinus rhythm. She then had outpatient Holter monitor presents for follow-up. Today she reports she has been feeling well since her cardioversion. She does not recall having any symptoms with her atrial fibrillation. Right now she states she continues to feel well overall. She has good activity tolerance. No chest discomfort at rest or with activity. No shortness of breath, PND, orthopnea or edema. No presyncope, syncope, falls. Taking medications as directed. No bleeding issues reported. [facility] Medical History Persistent atrial fibrillation HTN (hypertension) Family History Sister A-fib Father CHF (congestive heart failure) Mother CHF (congestive heart failure) Social History Alcohol intake: never Patient Tobacco Use Status: Former Tobacco user Review of Systems Const All systems reviewed & are unremarkable except as noted in HPI and below ENT Denies dizziness Card Denies chest pain, Denies chest pain at rest, Denies chest pain with activity, Denies rapid heart rate, Denies pedal edema, Denies edema, Denies leg edema, Denies lightheadedness, Denies palpitations, Denies dyspnea, Denies dyspnea on exertion and Denies orthopnea Resp Denies cough, Denies dyspnea and Denies dyspnea on exertion GI Denies hematochezia and Denies change in stool character Musc Denies abnormal gait, Denies limited range of motion, Denies muscle cramps, Denies muscle weakness, Denies numbness, Denies radiating pain into limb, Denies stiffness and Denies tingling Neuro Denies abnormal gait, Denies dizziness, Denies numbness and Denies tingling Endo Denies palpitations Physical Exam Vital Signs: Last Vital Signs BP 152/80 H 05/09/23 13:01 BMI result Body Mass Index 27.6 Const General: cooperative, healthy appearing, comfortable and no acute distress Orientation/consciousness: patient oriented x3 Neck Neck: Yes normal visual inspection Resp Effort & Inspection: normal respiratory effort Auscultation: clear to auscultation bilaterally, no crackles, no rales, no rhonchi and no wheezes Cardio Jugular venous distension: no JVD Rate: regular rate Rhythm: regular rhythm Heart sounds: S1 normal heart sound present, S2 normal heart sound present, no murmurs and no rubs Neuro General: patient oriented x3 Extrem General: Yes normal to inspection and No no pedal edema Psych Appearance: grossly normal Mental Status: mental status grossly normal Speech and movement: Normal speech and movement present Office Procedures EKG Details: Today, read by me, sinus bradycardia, incomplete right bundle branch block, rate 50, QTC 390 millisecond [id number], Complete Assessment & Plan Assessment & Plan (1) Persistent atrial fibrillation: Code(s): I48.19 - Other persistent atrial fibrillation Plan: Newer persistent atrial fibrillation, asymptomatic. Echocardiogram done 10/08/2022 at [facility] showing EF 60-65%, both atrium mildly dilated. She has been on metoprolol for heart rate control and Eliquis for anticoagulation. She then underwent a cardioversion on 04/02/2023 with successful conversion to normal sinus rhythm. Holter monitor done 04/16/2023 for 3 days shows sinus rhythm with average heart rate 56, heart rate range 45 to 75, 80% of time heart rate less than 60, rare ventricular ectopy with 2 runs, longest 5 beats. She currently reports feeling well with no fatigue, shortness of breath or heart palpitations. EKG done today showing sinus bradycardia, incomplete right bundle branch block, heart rate 50. She is holding in sinus rhythm and currently feeling good. Will continue on current metoprolol dose at 100 mg b.i.d.. If she does begin to have symptomatic bradycardia her metoprolol dose could be reduced. Continue Eliquis for anticoagulation. Cardiology follow-up in 3 months for evaluation of rate and rhythm, sooner if needed (2) HTN (hypertension): Code(s): I10 - Essential (primary) hypertension Qualifiers: Hypertension type: primary hypertension Qualified Code(s): I10 - Essential (primary) hypertension Plan: Mild elevation today. She tells me she has a history of hypertension and had been on 3 agents in the past, metoprolol, lisinopril and nifedipine. Back in September she had a acute illness and her was hypotensive. All her antihypertensives were stopped at that time. Metoprolol has since been restarted. More recently her PCP started her on lisinopril at 5 mg daily. Her prior dose had been 40 mg b.i.d.. At this time I will increase her lisinopril to 10 mg daily. Will forward this note to her PCP so that blood pressure can be followed. She tells me she has a follow-up visit with PCP in June. (3) History of cardioversion: Comment: 04/02/2023 Code(s): Z92.89 - Personal history of other medical treatment Medications: New lisinopril 10 mg PO DAILY 30 tabs 3RF Coding Level of Care Code Est Pt Level 4 (84221) Diagnoses Persistent atrial fibrillation I48.19 Primary hypertension I10 Hypertension type: primary hypertension History of cardioversion Z92.89 CPT Codes EKG - CPT: 94808-[id number], Complete ([id number]) Time Spent (min) 28
== END 2023-05-09 13:35 | disposition home or self-care (01) ==
PROVIDERS: PCP Internal Medicine; Visit Provider Nurse Practitioner Family
DX: I48.19 Other persistent atrial fibrillation (principal); I10 Essential (primary) hypertension; Z92.89 Personal history of other medical treatment
CPT/HCPCS: 93010; 99214

== ENCOUNTER → 2023-05-09 12:56 | Outpatient (BNVA) | payer OTHER, SELFPAY | PROVIDERS: PCP Internal Medicine; Visit Provider Nurse Practitioner Family | DX: I48.19 Other persistent atrial fibrillation (principal); I10 Essential (primary) hypertension; Z92.89 Personal history of other medical treatment | CPT/HCPCS: 93005; 99212 ==

== ENCOUNTER 2023-07-08 14:53 | Outpatient (REF) | payer OTHER, SELFPAY ==
[2023-07-08 16:43] LABS: Anion Gap 11 (12-20); Blood Urea Nitrogen 21 mg/dL (9-16); Carbon Dioxide 31 mmol/L (22-29); Chloride 100 mmol/L (96-108); Estimated Glomerular Filt Rate 48; Glucose Random 117 mg/dL (60-115); Potassium 3.9 mmol/L (3.3-5.1); Sodium 138 mmol/L (135-145)
== END 2023-07-08 14:54 | disposition home or self-care (01) ==
LOC: HO.HMGCLDS 14:53
PROVIDERS: PCP Internal Medicine; Visit Provider Internal Medicine
DX: I10 Essential (primary) hypertension (principal); E03.9 Hypothyroidism, unspecified
CPT/HCPCS: 36415; 80048; 84439; 84443

== ENCOUNTER 2023-08-18 13:17 | Outpatient (AMB) | payer OTHER, SELFPAY ==
[2023-08-18 13:23] VITALS: BP 140/72; PULSE 55; BMI 26.5
--- NOTE | 2023-08-18 13:23 | A.OFFVIS_ITS ---
Intake Vital Signs 08/18/23 13:23 Height 5 ft 8 in Weight 174 lb 9.698 oz BMI 26.5 BP 140/72 H Blood Pressure Location Lt brachial Position Sitting Pulse 55 Pulse Source Pulse Oximeter Intake Visit Reasons: follow up 3 month Intake Note: 3mnth f/up pt its feeling very good. Operations Systems Specialist Required: No Accompanied by: Self / Same As Patient Allergies codeine Allergy (Verified 05/09/23 13:06) Unknown Medication List - Last Reconciled 08/18/23 by Jluis Todd MD apixaban (Eliquis) 5 mg PO BID cholecalciferol (vitamin D3) 25 mcg PO DAILY levothyroxine 25 mcg PO DAILY lisinopril 10 mg PO DAILY magnesium oxide 500 mg PO DAILY metoprolol tartrate 100 mg PO BID HPI HPI Comments History of Present Illness Details Maria Elena is feeling well. She denies any new symptoms. She says she may notice some improvement in overall exercise capacity. She says her lisinopril was increased to 10 mg but a blood pressure still remains elevated in the systolic 140 range. She denies any heart failure symptoms. Denies any lightheadedness, syncope. No orthopnea, PND, leg edema. No bleeding issues or neurologic events. [facility] Medical History (Updated 08/18/23 @ 14:05 by Jluis Todd MD) Paroxysmal atrial fibrillation History of cardioversion Persistent atrial fibrillation HTN (hypertension) Family History Sister A-fib Father CHF (congestive heart failure) Mother CHF (congestive heart failure) Social History Alcohol intake: never Patient Tobacco Use Status: Former Tobacco user Review of Systems Const Reports chills, Reports fatigue, Reports fever(s), Reports frequent falls, Reports weakness, Reports weight gain and Reports weight loss ENT Reports dizziness Card Reports chest pain, Reports leg edema, Reports lightheadedness, Reports palpitations, Reports dyspnea and Reports dyspnea on exertion Resp Reports cough, Reports dyspnea and Reports dyspnea on exertion GI Reports hematochezia Musc Reports abnormal gait, Reports muscle weakness, Reports numbness, Reports radiating pain into limb and Reports tingling Neuro Reports abnormal gait, Reports dizziness, Reports frequent falls, Reports numbness, Reports tingling and Reports weakness Endo Reports fatigue and Reports palpitations Physical Exam Vital Signs: Last Vital Signs Pulse 55 08/18/23 13:23 BP 140/72 H 08/18/23 13:23 BMI result Body Mass Index 26.5 Const General: cooperative, healthy appearing, comfortable and no acute distress Orientation/consciousness: patient oriented x3 Neck Neck: Yes normal visual inspection Resp Effort & Inspection: normal respiratory effort Auscultation: clear to auscultation bilaterally, no crackles, no rales, no rhonchi and no wheezes Cardio Jugular venous distension: no JVD Rate: regular rate Rhythm: regular rhythm Heart sounds: S1 normal heart sound present, S2 normal heart sound present, no murmurs and no rubs Neuro General: patient oriented x3 Extrem General: Yes normal to inspection and No no pedal edema Psych Appearance: grossly normal Mental Status: mental status grossly normal Speech and movement: Normal speech and movement present Office Procedures EKG Details: EKG shows normal sinus rhythm with RSR prime pattern in lead V1 suggestive of right ventricular conduction delay [id number], Complete Assessment & Plan Assessment & Plan (1) Paroxysmal atrial fibrillation: Code(s): I48.0 - Paroxysmal atrial fibrillation Plan: Patient with prior persistent atrial fibrillation status post cardioversion doing well with seems like improvement in symptoms with overall exercise capacity although she says she only notices marginal improvement. At this point time will pursue rhythm control approach. We discussed about ways of monitoring and she would try to invest in smart tablet based EKG device. Continue metoprolol therapy. Avoid antiarrhythmic drug at this point in time. Importance of good blood pressure control was discussed. Continue full oral anticoagulation, currently on Eliquis 5 mg b.i.d.. At least semi annual renal function test should be pursued. Avoidance of stimulants was discussed. Advised to call me with any new symptoms. (2) HTN (hypertension): Code(s): I10 - Essential (primary) hypertension Qualifiers: Hypertension type: primary hypertension Qualified Code(s): I10 - Essential (primary) hypertension Plan: Hypertension which is not optimally control. Target goal blood pressure less than systolic 130 at all times. Will increase lisinopril to 20 mg daily. Advised to monitor blood pressure intermittently at home. Low-salt diet was discussed advised to increase activity level as tolerated. Follow up in the clinic in 6 months time, sooner p.r.n.. Thank you for allowing me to partake in her care Medications: New lisinopril 20 mg PO DAILY 90 tabs 3RF Discontinued lisinopril Discontinued Reason: Doctor's Order 10 mg PO DAILY 30 tabs 3RF Coding Level of Care Code Est Pt Level 4 (95531) Diagnoses Paroxysmal atrial fibrillation I48.0 Primary hypertension I10 Hypertension type: primary hypertension CPT Codes EKG - CPT: 20069-[id number], Complete ([id number])
== END 2023-08-18 14:22 | disposition home or self-care (01) ==
PROVIDERS: PCP Internal Medicine; Visit Provider Internal Medicine Cardiovascular Disease
DX: I48.0 Paroxysmal atrial fibrillation (principal); I10 Essential (primary) hypertension
CPT/HCPCS: 93010; 99214

== ENCOUNTER → 2023-08-18 13:17 | Outpatient (BNVA) | payer OTHER, SELFPAY | PROVIDERS: PCP Internal Medicine; Visit Provider Internal Medicine Cardiovascular Disease | DX: I48.0 Paroxysmal atrial fibrillation (principal); I10 Essential (primary) hypertension | CPT/HCPCS: 93005; 99212 ==

== ENCOUNTER 2023-10-07 13:01 | Outpatient (REF) | payer OTHER, SELFPAY ==
[2023-10-07 16:19] LABS: MANUAL DIFF FLAG NO
[2023-10-07 16:36] LABS: Basophils Absolute Auto 0.1 X10*3/uL (0.0-0.2); Basophils Percent Auto 1.5 % (0-2); Eosinophils Absolute Auto 0.2 X10*3/uL (0.0-0.4); Eosinophils Percent Auto 3.9 % (0-4); Hematocrit 46.5 % (37.0-47.0); Hemoglobin 14.8 g/dl (12.0-16.0); Imm Gran Abs Auto 0.01 X10*3/uL (0.00-0.03); Imm Gran Pct Auto 0.2 % (0.0-0.4); Lymphocytes Percent Auto 18.2 % (20-40); Mean Corpuscular HGB Conc 31.8 g/dl (31.0-35.0); Mean Corpuscular Hemoglobin 29.1 pg (27.0-33.0); Mean Corpuscular Volume 91.4 fL (80.0-98.0); Mean Platelet Volume 9.9 fL (9.4-12.3); Monocytes Absolute Auto 0.4 X10*3/uL (0.1-1.2); Monocytes Percent Auto 8.2 % (2-11); Neutrophils Absolute Auto 3.7 x10*3/uL (2.0-8.3); Platelet Count 243 X10*3/uL (160-400); Red Blood Count 5.09 X10*6/uL (4.20-5.50); Red Cell Distribution Width 13.1 % (11.0-16.0); White Blood Count 5.4 X10*3/uL (4.8-10.8)
[2023-10-07 16:55] LABS: Estimated Average Glucose 108 mg/dL; Hemoglobin A1c % 5.4 % (<6.0)
[2023-10-07 17:05] LABS: Alanine Aminotransferase 16 U/L (0-31); Albumin Level 3.9 g/dL (3.5-5.0); Alkaline Phosphatase 162 U/L (39-117); Anion Gap 10 (12-20); Aspartate Amino Transferase 21 U/L (5-31); Bilirubin Total 0.5 mg/dL (0.0-1.0); Blood Urea Nitrogen 20 mg/dL (9-16); Calcium 10.1 mg/dL (8.4-10.2); Carbon Dioxide 30 mmol/L (22-29); Chloride 103 mmol/L (96-108); Estimated Glomerular Filt Rate 56; Glucose Random 89 mg/dL (60-115); Potassium 4.2 mmol/L (3.3-5.1); Sodium 139 mmol/L (135-145); Total Protein 8.4 g/dL (6.5-8.0)
[2023-10-07 17:10] LABS: Free T4 (Free Thyroxine) 1.09 ng/dL (0.71-1.85); Thyroid Stimulating Hormone 2.56 uIU/mL (0.32-4.0)
== END 2023-10-07 13:02 | disposition home or self-care (01) ==
LOC: HO.HMGCLDS 13:01
PROVIDERS: PCP Internal Medicine; Visit Provider Internal Medicine
DX: I48.0 Paroxysmal atrial fibrillation (principal); E03.9 Hypothyroidism, unspecified; R73.03 Prediabetes; I12.9 Hypertensive chronic kidney disease with stage 1 through stage 4 chronic kidney disease, or unspecified chronic kidney disease; N18.9 Chronic kidney disease, unspecified; E55.9 Vitamin D deficiency, unspecified
CPT/HCPCS: 36415; 80053; 83036; 84439; 84443; 85025

== ENCOUNTER 2024-01-06 14:51 | Outpatient (REF) | payer MEDICARE, SELFPAY ==
[2024-01-06 16:40] LABS: Alanine Aminotransferase 15 U/L (0-31); Albumin Level 3.8 g/dL (3.5-5.0); Alkaline Phosphatase 163 U/L (39-117); Anion Gap 11 (12-20); Aspartate Amino Transferase 20 U/L (5-31); Bilirubin Total 0.4 mg/dL (0.0-1.0); Blood Urea Nitrogen 21 mg/dL (9-16); Carbon Dioxide 32 mmol/L (22-29); Chloride 100 mmol/L (96-108); Estimated Glomerular Filt Rate 55; Glucose Random 99 mg/dL (60-115); Potassium 4.3 mmol/L (3.3-5.1); Sodium 139 mmol/L (135-145); Total Protein 8.5 g/dL (6.5-8.0)
== END 2024-01-06 14:52 | disposition home or self-care (01) ==
LOC: HO.HMGCLDS 14:51
PROVIDERS: PCP Internal Medicine; Visit Provider Internal Medicine
DX: I10 Essential (primary) hypertension (principal)
CPT/HCPCS: 36415; 80053

== ENCOUNTER 2024-02-12 13:33 | Outpatient (AMB) | payer MEDICARE, SELFPAY ==
[2024-02-12 13:56] VITALS: BP 120/78; PULSE 62; BMI 25.5
--- NOTE | 2024-02-12 13:56 | A.OFFVIS_ITS ---
Vital Signs 02/12/24 13:56 Height 5 ft 8 in Weight 167 lb 8.821 oz BMI 25.5 BP 120/78 Blood Pressure Location Lt brachial Position Sitting Pulse 62 Intake Visit Reasons: 6 mth f/up Intake Note: 6 month follow-up feeling good Team Assembly Line Machine Operator Required: No Allergies codeine Allergy (Verified 05/09/23 13:06) Unknown Medication List - Last Reconciled 02/12/24 by Jluis Todd MD apixaban (Eliquis) 5 mg PO BID cholecalciferol (vitamin D3) 25 mcg PO DAILY levothyroxine 25 mcg PO DAILY lisinopril 20 mg PO DAILY magnesium oxide 500 mg PO DAILY metoprolol tartrate 100 mg PO BID 90 days HPI Comments Details: Maria Elena comes for follow-up. She says she has been doing better in bed over the last 6 months. She is finding more energy with her activity level. She denies any heart failure symptoms. Denies any prolonged palpitation irregular heartbeat. She does EKGs on a weekly basis with help of a sister smart phone. She has remained in sinus rhythm. Blood pressures been well controlled. Denies any orthopnea, PND, leg edema. No bleeding issues or neurologic events. [facility] Medical History Paroxysmal atrial fibrillation History of cardioversion Persistent atrial fibrillation HTN (hypertension) Family History Sister A-fib Father CHF (congestive heart failure) Mother CHF (congestive heart failure) Social History Alcohol intake: never Patient Tobacco Use Status: Former Tobacco user Review of Systems Const Denies chills, Denies fatigue, Denies fever(s), Denies frequent falls, Denies weakness, Denies weight gain and Denies weight loss ENT Denies dizziness Card Denies chest pain, Denies leg edema, Denies lightheadedness, Denies palpitations, Denies dyspnea, Denies dyspnea on exertion, Denies orthopnea and Denies other (loss of consciousness) Resp Denies cough, Denies dyspnea and Denies dyspnea on exertion GI Denies hematochezia and Denies change in stool character Musc Denies abnormal gait, Denies muscle weakness, Denies numbness, Denies radiating pain into limb and Denies tingling Neuro Denies abnormal gait, Denies dizziness, Denies frequent falls, Denies numbness, Denies tingling and Denies weakness Endo Denies fatigue and Denies palpitations Physical Exam Vital Signs: Last Vital Signs Pulse 62 02/12/24 13:56 BP 120/78 02/12/24 13:56 BMI result Body Mass Index 25.5 Const General: cooperative, healthy appearing, comfortable and no acute distress Orientation/consciousness: patient oriented x3 Neck Neck: Yes normal visual inspection Resp Effort & Inspection: normal respiratory effort Auscultation: clear to auscultation bilaterally, no crackles, no rales, no rhonchi and no wheezes Cardio Jugular venous distension: no JVD Rate: regular rate Rhythm: regular rhythm Heart sounds: S1 normal heart sound present, S2 normal heart sound present, no murmurs and no rubs Neuro General: patient oriented x3 Extrem General: Yes normal to inspection and No no pedal edema Psych Appearance: grossly normal Mental Status: mental status grossly normal Speech and movement: Normal speech and movement present Office Procedures EKG Details: EKG shows sinus bradycardia with right ventricular conduction delay [id number], Complete Assessment & Plan Assessment & Plan (1) Preoperative cardiovascular examination: Code(s): Z01.810 - Encounter for preprocedural cardiovascular examination Plan: Patient to undergo cataract surgery in near future due to advanced cataract in the left eye with reduced vision. This is a low risk surgery. Patient is optimized to undergo this procedure with low risk for perioperative cardiovascular morbidity mortality. Continue all medications including oral anticoagulation therapy in the perioperative period. (2) Paroxysmal atrial fibrillation: Code(s): I48.0 - Paroxysmal atrial fibrillation Category: Medical Plan: Paroxysmal atrial fibrillation now currently doing well. She says she has been noticing more and more energy over the last 6 months. She denies any irregular heartbeat. She has been monitoring her EKG on a weekly basis with her sister and she has not had any episodes of atrial fibrillation. She denies any prolonged palpitation irregular heartbeat. Continue metoprolol therapy. Continue full oral anticoagulation, currently on Eliquis 5 mg b.i.d.. Semi annual renal function test should be pursued. (3) HTN (hypertension): Code(s): I10 - Essential (primary) hypertension Category: Medical Qualifiers: Hypertension type: primary hypertension Qualified Code(s): I10 - Essential (primary) hypertension Plan: Hypertension which is currently well optimized advised to monitor blood pressure at home maintain a log. Goal blood pressure less than 130/84. Advised to intermittently check blood pressure at home. Low-salt diet was discussed. Stress mitigation strategies was discussed. Follow up in the clinic in 6 months time, sooner p.r.n.. Thank you for allowing me to partake in the care Coding Level of Care Code Est Pt Level 4 (46565) Diagnoses Preoperative cardiovascular examination Z01.810 Paroxysmal atrial fibrillation I48.0 Primary hypertension I10 Hypertension type: primary hypertension CPT Codes EKG - CPT: 69324-[id number], Complete ([id number])
== END 2024-02-12 14:29 | disposition home or self-care (01) ==
PROVIDERS: PCP Internal Medicine; Visit Provider Internal Medicine Cardiovascular Disease
DX: I48.0 Paroxysmal atrial fibrillation (principal); I10 Essential (primary) hypertension; Z01.810 Encounter for preprocedural cardiovascular examination
CPT/HCPCS: 93010; 99214

== ENCOUNTER → 2024-02-12 13:33 | Outpatient (BNVA) | payer MEDICARE, SELFPAY | PROVIDERS: PCP Internal Medicine; Visit Provider Internal Medicine Cardiovascular Disease | DX: Z01.810 Encounter for preprocedural cardiovascular examination (principal); I48.0 Paroxysmal atrial fibrillation; I10 Essential (primary) hypertension | CPT/HCPCS: 93005; 99212 ==

== ENCOUNTER → 2024-03-02 14:53 | Outpatient (REF) | payer MEDICARE, SELFPAY ==
--- NOTE | 2024-03-02 14:56 | CA_ITS ---
Transthoracic Echocardiogram Patient (Last, First, Middle): Maria Elena Martinez, Gender: Female Date of : 1960 Age: 63 Procedure Date: 03/02/2024 Procedure Type: Transthoracic Echocardiogram Location: OP Height: 172.72 cm Weight: 76.2 kg BSA: 1.90 m2 Heart Rate: bpm BP: 130 / 72 mmHg Plant Chief: TO Referring MD: Jluis Todd MD Shell Maker Lockstitch: Jluis Todd MD Symptoms: I48.0 - Paroxysmal atrial fibrillation Study Quality: Fair ECG Rhythm: Sinus Conclusions: - 1. Normal LV ejection fraction 55-60% with impaired relaxation filling pattern 2. Normal cardiac valvular Doppler 3. Upper limits of normal ascending aortic size 4. Mildly elevated right ventricular systolic pressure 5. No pericardial effusion Findings Left Ventricle Normal left ventricular size, thickness, and systolic function. The visually estimated ejection fraction is between 55-60%. Spectral Doppler is indicative of an impaired relaxation filling pattern. There is mild septal asymmetric hypertrophy. Right Ventricle Normal right ventricular cavity size and systolic function. Atria Both atria are normal in size. There is no evidence of interatrial shunt. Aortic Valve Normal aortic valve structure and function. There is no aortic valve stenosis. There is no aortic valve regurgitation. Mitral Valve There is mild anterior and posterior mitral leaflet thickening. There is trace mitral valve regurgitation. There is no mitral valve stenosis. Pulmonic Valve The pulmonic valve is likely normal. Tricuspid Valve Normal tricuspid valve structure. There is mild tricuspid valve regurgitation. The right ventricular systolic pressure is normal. Normal right atrial pressure. Mild pulmonary hypertension is present. Great Vessels The pulmonary artery was not well visualized. There is no dilatation of the ascending aorta measuring 3.50 cm. Moderate plaque is seen in the sino tubular ridge. Venous The inferior vena cava is normal in size and collapses greater than 50% with inspiration. Pericardium/Pleural There is no evidence of pericardial effusion. Prior Study Comparison No prior study available for comparison. Measurements 2D Linear Measurements IVSd: 1.28 0.6-0.9/0.6-1.0 cm LVIDd: 4.12 3.9-5.3/4.2-5.9 cm LVIDd Index: 2.17 2.4-3.2/2.2-3.1 cm/m2 LVIDs: 2.81 2.0-3.6 cm LVPWd: 0.86 0.7-1.1 cm LA Diam: 3.10 2.7-3.8/3.0-4.0 cm LAIDs Index: 1.63 1.5-2.3 cm/m2 LV Mass: 182.27 67-162/88-224 g LV Mass Index: 95.93 43-95/49-115 g/m2 LVOT Diam: 2.10 3.0+(-)1.3 cm 2D Systolic Function EF 4C: 55.50 >55% EF 2C: 63.90 >55% EF BiP: 59.70 >55% Mitral Valve MV Pk E: 0.48 MV PK A: 0.26 MV Decel Time: 290.00 E/A: 1.90 E'Lateral: 8.70 E'Medial: 6.31 E/E' Med: 7.70 E/E' Lat: 5.60 PHT: 85.00 MVA PHT: 2.59 Decel Dewitt: 1.67 Aortic Valve AoV Pk Babak: 1.49 AoV Mn Babak: 0.97 AoV VTI: 0.34 AoV Pk Grad: 9.00 Aov Mn Grad: 5.00 RADHA Cont.VTI: 2.44 LVOT LVOT Pk Babak: 1.01 LVOT Mn Babak: 0.64 LVOT VTI: 0.24 LVOT Pk Grad: 4.00 LVOT Mn Grad: 2.00 LVOT Diam: 2.10 LVOT Area: 3.46 Diastolic Function MV Pk E: 0.48 MV Pk A: 0.26 E/A: 1.90 E'Medial: 6.31 E/E' Med: 7.70 E' Laterial: 8.70 E/E' Lat: 5.60 Right Ventricle TAPSE (mm): 17.50 TVS' Babak: 10.10 Tricuspid Valve TR Pk Babak: 3.15 TR Pk Grad: 40.00 RA Press: 3.00 RVSP: 43.00 Great Vessels Aorta Sinus of Valsalva: 3.20 2.0-3.5 cm Ao Asc: 3.50 2.1-3.4 cm Updated in Other Vendor System with Status of Final Jluis Todd MD electronically signed on 03/03/2024 2:52:49 PM with status of Final
== END ==
LOC: HO.CARD 14:53
PROVIDERS: Visit Provider Internal Medicine Cardiovascular Disease
DX: I48.0 Paroxysmal atrial fibrillation (principal)
CPT/HCPCS: 93306

== ENCOUNTER → 2024-03-02 14:56 | Outpatient (BNV) | payer MEDICARE, SELFPAY | PROVIDERS: Visit Provider Internal Medicine Cardiovascular Disease | DX: I42.2 Other hypertrophic cardiomyopathy (principal); I36.1 Nonrheumatic tricuspid (valve) insufficiency; I27.20 Pulmonary hypertension, unspecified | CPT/HCPCS: 93306 ==

== ENCOUNTER 2024-03-16 14:32 | Outpatient (REF) | payer MEDICARE, SELFPAY ==
[2024-03-16 15:59] LABS: MANUAL DIFF FLAG NO
[2024-03-16 16:25] LABS: Basophils Absolute Auto 0.1 X10*3/uL (0.0-0.2); Basophils Percent Auto 1.6 % (0-2); Eosinophils Absolute Auto 0.2 X10*3/uL (0.0-0.4); Eosinophils Percent Auto 3.3 % (0-4); Hematocrit 46.5 % (37.0-47.0); Hemoglobin 14.8 g/dl (12.0-16.0); Imm Gran Abs Auto 0.02 X10*3/uL (0.00-0.03); Imm Gran Pct Auto 0.4 % (0.0-0.4); Lymphocytes Absolute Auto 1.1 X10*3/uL (1.2-4.9); Lymphocytes Percent Auto 20.9 % (20-40); Mean Corpuscular HGB Conc 31.8 g/dl (31.0-35.0); Mean Corpuscular Volume 91.2 fL (80.0-98.0); Mean Platelet Volume 9.4 fL (9.4-12.3); Monocytes Absolute Auto 0.5 X10*3/uL (0.1-1.2); Monocytes Percent Auto 9.6 % (2-11); Neutrophils Absolute Auto 3.3 x10*3/uL (2.0-8.3); Neutrophils Percent Auto 64.2 % (45-73); Platelet Count 242 X10*3/uL (160-400); Red Cell Distribution Width 12.7 % (11.0-16.0); White Blood Count 5.1 X10*3/uL (4.8-10.8)
[2024-03-16 16:45] LABS: Alanine Aminotransferase 16 U/L (0-31); Albumin Level 3.9 g/dL (3.5-5.0); Alkaline Phosphatase 161 U/L (39-117); Anion Gap 12 (12-20); Aspartate Amino Transferase 21 U/L (5-31); Bilirubin Total 0.5 mg/dL (0.0-1.0); Blood Urea Nitrogen 20 mg/dL (9-16); Carbon Dioxide 30 mmol/L (22-29); Chloride 100 mmol/L (96-108); Cholesterol 205 mg/dL (<200); Estimated Glomerular Filt Rate 49; Glucose Fasting 93 mg/dL (60-99); HDL Cholesterol 48 mg/dL (>40); LDL Cholesterol Calculated 135 mg/dL (<100); Potassium 4.6 mmol/L (3.3-5.1); Sodium 137 mmol/L (135-145); Total Protein 8.4 g/dL (6.5-8.0); Triglycerides 110 mg/dL (<150)
[2024-03-16 16:53] LABS: Free T4 (Free Thyroxine) 1.01 ng/dL (0.71-1.85); Thyroid Stimulating Hormone 3.13 uIU/mL (0.32-4.0)
== END 2024-03-16 14:33 | disposition home or self-care (01) ==
LOC: HO.HMGCLDS 14:32
PROVIDERS: PCP Internal Medicine; Visit Provider Internal Medicine
DX: I48.0 Paroxysmal atrial fibrillation (principal); I10 Essential (primary) hypertension; E03.9 Hypothyroidism, unspecified; E55.9 Vitamin D deficiency, unspecified
CPT/HCPCS: 36415; 80053; 80061; 84439; 84443; 85025

== ENCOUNTER 2024-05-24 13:48 | Outpatient (REF) | payer MEDICARE, SELFPAY ==
--- NOTE | ~2024-05-24 | MM_ITS ---
EXAMINATION: MM SCREENING DIGITAL BREAST TOMOSYNTHESIS, BILATERAL CLINICAL INFORMATION: Screening. Asymptomatic. COMPARISON: Mammography: Comparison is made with available priors TECHNIQUE: Digital breast mammography with tomosynthesis is performed in both the craniocaudal and mediolateral oblique views along with computer-aided detection (CAD). FINDINGS: There are scattered areas of fibroglandular density (ACR BI-RADS breast composition Category b). There are no significant masses, abnormal calcifications, or other abnormalities. MM/MM tomosynthesis screening BI IMPRESSION: No mammographic evidence of malignancy. ASSESSMENT: BI-RADS BI-RADS 1 - Negative RECOMMENDATION: Routine annual mammography screening. 1 year F/U This examination should not preclude the clinical evaluation of a suspicious palpable abnormality. This patient's information was entered into a reminder system with a target due date for their next mammogram. Electronically signed by: Radha Cox DO 06/02/2024 10:28 AM URIEL
== END 2024-05-24 13:49 | disposition home or self-care (01) ==
LOC: HO.MAMMO 13:48
PROVIDERS: PCP Internal Medicine; Visit Provider Internal Medicine
DX: Z12.31 Encounter for screening mammogram for malignant neoplasm of breast (principal)
CPT/HCPCS: 77063; 77067

== ENCOUNTER → 2024-05-24 14:15 | Outpatient (BNV) | payer MEDICARE, SELFPAY | PROVIDERS: PCP Internal Medicine; Visit Provider Internal Medicine | DX: Z12.31 Encounter for screening mammogram for malignant neoplasm of breast (principal) | CPT/HCPCS: 77063; 77067 ==

== ENCOUNTER 2024-12-21 13:18 | Outpatient (REF) | payer MEDICARE, SELFPAY ==
--- OUTSIDE RECORDS SUMMARY | 2024-12-21 13:24 | XMS_ITS | Clinical Summary ---
Author Organization [facility] Facility Address [address] [address] Care Team Providers Care Waxer Name Role Phone Maegan Steven MD Primary Care Provider [phone] Social History Tobacco Use Types Packs/Day Years Used Date Smoking Tobacco: Never Assessed Comments Unknown Sex and Gender Information Value Date Recorded Sex Assigned at Not on file Legal Sex Female 9:18 AM EDT Gender Identity Not on file Sexual Orientation Not on file Plan of Treatment Health Maintenance Due Date Last Done Comments Breast Cancer Screening 1960 Colorectal Cancer Screening: Annual FOBT 10/31/2007 Colorectal Cancer Screening: Colonoscopy 10/31/2007 Colorectal Cancer Screening: Sigmoidoscopy 10/31/2007 Pneumococcal Vaccine: 50+ Ye ars ( - PCV) 2008 Influenza Vaccine (Season Ended) 2025 Hepatitis B Vaccine Aged Out No longe r eligible based on patient's age to complete this topic Insurance [facility] Care Teams Waxer Relationship Specialty Start Date End Date Maegan Steven MD [address] [place] [address] [place] [address] PCP - General Internal Medicine 10/14/22
[2024-12-21 15:57] LABS: MANUAL DIFF FLAG NO
[2024-12-21 16:07] LABS: Basophils Absolute Auto 0.1 X10*3/uL (0.0-0.2); Basophils Percent Auto 1.7 % (0-2); Eosinophils Absolute Auto 0.2 X10*3/uL (0.0-0.4); Hematocrit 46.9 % (37.0-47.0); Hemoglobin 15.4 g/dl (12.0-16.0); Imm Gran Abs Auto 0.01 X10*3/uL (0.00-0.03); Imm Gran Pct Auto 0.2 % (0.0-0.4); Lymphocytes Absolute Auto 0.9 X10*3/uL (1.2-4.9); Mean Corpuscular HGB Conc 32.8 g/dl (31.0-35.0); Mean Corpuscular Volume 91.4 fL (80.0-98.0); Mean Platelet Volume 9.8 fL (9.4-12.3); Monocytes Absolute Auto 0.4 X10*3/uL (0.1-1.2); Monocytes Percent Auto 7.9 % (2-11); Neutrophils Absolute Auto 3.7 x10*3/uL (2.0-8.3); Neutrophils Percent Auto 69.2 % (45-73); Platelet Count 181 X10*3/uL (160-400); Red Blood Count 5.13 X10*6/uL (4.20-5.50); Red Cell Distribution Width 12.8 % (11.0-16.0); White Blood Count 5.3 X10*3/uL (4.8-10.8)
[2024-12-21 16:29] LABS: Alanine Aminotransferase 19 U/L (0-31); Albumin Level 4.1 g/dL (3.5-5.0); Alkaline Phosphatase 154 U/L (39-117); Anion Gap 11 (12-20); Aspartate Amino Transferase 24 U/L (5-31); Bilirubin Total 0.5 mg/dL (0.0-1.0); Blood Urea Nitrogen 17 mg/dL (9-16); Calcium 9.5 mg/dL (8.4-10.2); Carbon Dioxide 30 mmol/L (22-29); Chloride 100 mmol/L (96-108); Cholesterol 197 mg/dL (<200); Estimated Glomerular Filt Rate 53; Glucose Fasting 90 mg/dL (60-99); HDL Cholesterol 53 mg/dL (>40); LDL Cholesterol Calculated 122 mg/dL (<100); Potassium 4.5 mmol/L (3.3-5.1); Sodium 136 mmol/L (135-145); Total Protein 8.1 g/dL (6.5-8.0); Triglycerides 111 mg/dL (<150)
[2024-12-21 16:44] LABS: Free T4 (Free Thyroxine) 1.15 ng/dL (0.71-1.85); Thyroid Stimulating Hormone 5.05 uIU/mL (0.32-4.0)
== END 2024-12-21 13:19 | disposition home or self-care (01) ==
LOC: HO.HMGCLDS 13:18
PROVIDERS: PCP Internal Medicine; Visit Provider Internal Medicine
DX: I10 Essential (primary) hypertension (principal); E78.00 Pure hypercholesterolemia, unspecified; E03.9 Hypothyroidism, unspecified; J44.9 Chronic obstructive pulmonary disease, unspecified; I48.91 Unspecified atrial fibrillation
CPT/HCPCS: 36415; 80053; 80061; 84439; 84443; 85025

== ENCOUNTER 2024-12-23 13:41 | Outpatient (AMB) | payer MEDICARE, SELFPAY ==
[2024-12-23 13:43] VITALS: BP 138/86; PULSE 54; TEMP 36.9; O2SAT 92; BMI 24.9
--- NOTE | 2024-12-23 13:43 | A.OFFPC_ITS ---
Vital Signs 12/23/24 13:43 Height 5 ft 8 in Weight 164 lb BMI 24.9 BP 138/86 Blood Pressure Location Rt brachial Position Sitting Pulse 54 Pulse Source Pulse Oximeter Temp 98.5 F Temp Source Axillary Pulse Oximetry (%) 92 Oxygen Delivery Method Room Air Intake Visit Reasons: routine Reclamation Kettle Tender Required: No Accompanied by: Self / Same As Patient Allergies codeine Allergy (Verified 12/23/24 13:43) Unknown Tobacco use date assessed: 12/23/24 Fall risk assessment: No Falls in past year Last assessed Fall Risk: 12/23/24 Dental Screening Dental Screen Date: 12/23/24 Did you have a dental visit in the last 12 months?: Yes Did you have a dental problem in the last 6 months where you did not have access to dental care?: No HPI HPI Comments History of Present Illness Details Maria Elena is a 64 year old female with a past medical history of paroxysmal, afib, hypertension, hypothyroid, COPD, CKD presenting for follow up. Last seen by pcp in july CV: on lopressor, eliquis, lisinopril. Labs up to date. Follows with cardiology Hypothyroid-on levothyroxine. Last TSH is mildly elevated 11/2024. Feeling well Mammo 05/20/24 Dexa 2022 Declines colonoscopy. Cologuard sent ROS CONSTITUTIONAL: Denies weight loss, fever and chills. HEENT: Denies changes in vision and hearing. RESPIRATORY: Denies SOB and cough. CV: Denies palpitations and CP GI: Denies abdominal pain, nausea, vomiting and diarrhea. : Denies dysuria and urinary frequency. MSK: Denies new myalgia and joint pain. SKIN: Denies rash and pruritus. NEUROLOGICAL: Denies headache PSYCHIATRIC: Denies recent changes in mood. PHYSICAL EXAM: GENERAL: Alert and oriented x 3. NAD EYES: EOMI. Anicteric. HENT: Moist mucous membranes. Heterogenous thyroid with palpable nodules LUNGS: Clear to auscultation bilaterally. CARDIOVASCULAR: Regular rate and rhythm. No murmur. No JVD. ABDOMEN: Soft, non-tender +bs EXTREMITIES: No edema. Non-tender. SKIN: No rashes or lesions. Warm. NEUROLOGIC: No focal neurological deficits. CN II-XII grossly intact PSYCHIATRIC: Cooperative. Appropriate mood and affect [facility] Medical History Paroxysmal atrial fibrillation History of cardioversion Persistent atrial fibrillation HTN (hypertension) Family History Sister A-fib Father CHF (congestive heart failure) Mother CHF (congestive heart failure) Mother No problems noted. Father No problems noted. Social History Housing: House Alcohol intake: never Patient Tobacco Use Status: Former Tobacco user e-Cigarette/Vaping Use: Former Use service: No Current occupational status: retired Cognitive needs: No Hearing needs: No Vision needs: Yes (reading glasses) Questionnaire PHQ-9 Over the last 2 weeks, how often have you been bothered by any of the following problems? 1. Little interest or pleasure in doing things: not at all 2. Feeling down, depressed, or hopeless: not at all 3. Trouble falling or staying asleep, or sleeping too much: not at all 4. Feeling tired or having little energy: not at all 5. Poor appetite or overeating: not at all 6. Feeling bad about yourself - or that you are a failure or have let yourself or your family down: not at all 7. Trouble concentrating on things, such as reading the newspaper or watching television: not at all 8. Moving or speaking so slowly that other people could have noticed. Or the opposite - being so fidgety or restless that you have been moving around a lot more than usual: not at all 9. Thoughts that you would be better off or of hurting yourself in some way: not at all Total score: 0 Source: Developed by Drs. Richard Landon, Blanche Crum, Ranjan Haji and colleagues, with an educational domo from [employer]. Thrive Questionnaire Date Thrive assessed: 12/23/24 I am a: Patient Within the past 12 months, did the food you bought not last and you didn't have the money to get more?: Never true Within the past 12 months, did you worry whether your food would run out before you got money to buy more?: Never true Do you have trouble paying for medicines?: No Do you have trouble getting transportation to medical appointments?: No Do you have trouble paying your heating and electricity bill?: No Do you have trouble taking care of your child, family member or friend?: No Do you have trouble with day-to-day activities such as bathing, preparing meals, shopping, managing finances, etc.?: No Are you currently unemployed and looking for a job?: No Are you interested in more education?: No THRIVE Score: 0 AUDIT C Alcohol Use Questionnaire (AUDIT-C) 1. How often do you have a drink containing alcohol?: Never 3. How often do you have six or more drinks on one occasion?: Never Total Score: 0 LISA-7 AMB Questionnaire LISA-7 Date LISA - 7 assessed: 12/23/24 Feeling nervous, anxious, or on edge: 0 = Not at all Not being able to stop or control worryin = Not at all Worrying too much about different things: 0 = Not at all Trouble relaxin = Not at all Being so restless that it is hard to sit still: 0 = Not at all Becoming easily annoyed or irritable: 0 = Not at all Feeling afraid as if something awful might happen: 0 = Not at all Total LISA-7 score (0-4 normal; 5-9 mild; 10-14 moderate; 15-21 severe): 0 Source: Developed by Drs. Richard Landon, Blanche Crum, Ranjan Haji and colleagues, with an educational domo from [employer]. Physical exam (Primary Care) Tobacco/Smoking Status: Tobacco use Status Tobacco use date assessed 12/23/24 12/23/24 13:44 Patient Tobacco Use Status Former Tobacco user 12/23/24 13:44 e-Cigarette/Vaping Use Former Use 12/23/24 13:44 PHQ-9: PHQ-9 Score PHQ-9: Total score 0 12/23/24 13:44 Thrive Assessment: Date of Thrive Assessment Date Thrive assessed 12/23/24 12/23/24 13:44 Coding Level of Care Code New Pt Level 4 (49865) Complex EM visit Add On G2211 Diagnoses Paroxysmal atrial fibrillation I48.0 Primary hypertension I10 Hypertension type: primary hypertension Thyroid nodule E04.1 Hypothyroidism, unspecified type E03.9 Hypothyroidism type: unspecified Assessment & Plan Assessment & Plan (1) Paroxysmal atrial fibrillation: Code(s): I48.0 - Paroxysmal atrial fibrillation Category: Medical (2) HTN (hypertension): Code(s): I10 - Essential (primary) hypertension Category: Medical Qualifiers: Hypertension type: primary hypertension Qualified Code(s): I10 - Essential (primary) hypertension (3) Thyroid nodule: Code(s): E04.1 - Nontoxic single thyroid nodule Category: Medical (4) Hypothyroid: Code(s): E03.9 - Hypothyroidism, unspecified Category: Medical Qualifiers: Hypothyroidism type: unspecified Qualified Code(s): E03.9 - Hypothyroidism, unspecified Plan 64 year old to establish care past medical, surgical, social reviewed TSH mild elevation. clinically euthyroid. maintain current dose HTN-adequately controlled. Could increase lisinopril if continues with mild elevation-upcoming cardiology next week Labs ordered 5-6 months with return Cologuard sent Orders: Orders Complete Blood Count Auto Diff Today I10 - Essential (primary) hypertension, I48.0 - Paroxysmal atrial fibrillation Comprehensive Met. Panel Today I10 - Essential (primary) hypertension, I48.0 - Paroxysmal atrial fibrillation Lipid Panel Today I10 - Essential (primary) hypertension, I48.0 - Paroxysmal atrial fibrillation TSH reflex Free T4 Today I10 - Essential (primary) hypertension, I48.0 - Paroxysmal atrial fibrillation MM screening mammo BI 5 Months Z12.31 - Encounter for screening mammogram for malignant neoplasm of breast XR DEXA axial skeleton 5 Months M89.9 - Disorder of bone, unspecified, M94.9 - Disorder of cartilage, unspecified US thyroid Today E03.9 - Hypothyroidism, unspecified, E04.1 - Nontoxic single thyroid nodule Alkaline Phosphatase Isoenzyme Today R74.8 - Abnormal levels of other serum enzymes Referrals 2 Cologuard Test Z12.11 - Encounter for screening for malignant neoplasm of colon, Z12.12 - Encounter for screening for malignant neoplasm of rectum Medications: Refilled lisinopril 20 mg PO DAILY 90 tabs 3RF
--- OUTSIDE RECORDS SUMMARY | 2024-12-23 13:46 | XMS_ITS | Clinical Summary ---
Author Organization [facility] Facility Address [address] [address] Care Team Providers Care Delivery Room Clerk Name Role Phone Maegan Steven MD Primary Care Provider [phone] Social History Tobacco Use Types Packs/Day Years [...] patient's age to complete this topic Insurance [facility] Care Teams Delivery Room Clerk Relationship Specialty Start Date End Date Maegan Steven MD [address] [place] [address] [place] [address] PCP - General Internal Medicine 10/14/22
== END 2024-12-23 14:18 | disposition home or self-care (01) ==
LOC: HO.HMCHD 13:41
PROVIDERS: PCP Internal Medicine; Visit Provider Internal Medicine
DX: I48.0 Paroxysmal atrial fibrillation (principal); I10 Essential (primary) hypertension; E04.1 Nontoxic single thyroid nodule; E03.9 Hypothyroidism, unspecified

== ENCOUNTER → 2024-12-23 13:41 | Outpatient (BNVA) | payer MEDICARE, SELFPAY | PROVIDERS: PCP Internal Medicine; Visit Provider Internal Medicine | DX: I12.9 Hypertensive chronic kidney disease with stage 1 through stage 4 chronic kidney disease, or unspecified chronic kidney disease (principal); I48.0 Paroxysmal atrial fibrillation; N18.9 Chronic kidney disease, unspecified; E04.1 Nontoxic single thyroid nodule; E03.9 Hypothyroidism, unspecified; J44.9 Chronic obstructive pulmonary disease, unspecified; M89.9 Disorder of bone, unspecified | CPT/HCPCS: 99202 ==

== ENCOUNTER 2024-12-30 14:14 | Outpatient (AMB) | payer MEDICARE, SELFPAY ==
[2024-12-30 14:19] VITALS: BP 130/80; PULSE 53; BMI 24.8
--- NOTE | 2024-12-30 14:19 | MHC.OFFVIS ---
Vital Signs 12/30/24 14:19 Height 5 ft 8 in Weight 163 lb 2.273 oz BMI 24.8 BP 130/80 Blood Pressure Location Lt brachial Position Sitting Pulse 53 Intake Visit Reasons: r/s(2) 09/23/24 6 mos followup Intake Note: 6 month follow-up with ekg feeling good Manager Cardiology Required: No Allergies codeine Allergy (Verified 12/23/24 13:43) Unknown Medication List - Last Reconciled 12/30/24 by Jluis Todd MD apixaban (Eliquis) 5 mg PO BID cholecalciferol (vitamin D3) 25 mcg PO DAILY levothyroxine 25 mcg PO DAILY lisinopril 20 mg PO DAILY magnesium oxide 500 mg PO DAILY metoprolol tartrate 100 mg PO BID HPI Comments Details: Maria Elena comes for follow-up. Patient says that she is feeling really well. She has been really remaining active. She has been monitoring her heart rate on a EKG device with the assistance in his maintain rhythm. She has not had any prolonged irregular heartbeat or fast heart rate. No shortness of breath or fatigue. Takes all her medications. No lightheadedness, syncope. No orthopnea, PND, leg edema. [facility] Medical History Paroxysmal atrial fibrillation History of cardioversion Persistent atrial fibrillation HTN (hypertension) Family History Sister A-fib Father CHF (congestive heart failure) Mother CHF (congestive heart failure) Mother No problems noted. Father No problems noted. Social History Housing: House Alcohol intake: never Patient Tobacco Use Status: Former Tobacco user e-Cigarette/Vaping Use: Former Use service: No Current occupational status: retired Cognitive needs: No Hearing needs: No Vision needs: Yes (reading glasses) Review of Systems Const Denies chills, Denies fatigue, Denies fever(s), Denies frequent falls, Denies weakness, Denies weight gain and Denies weight loss ENT Denies dizziness Card Denies chest pain, Denies leg edema, Denies lightheadedness, Denies palpitations, Denies dyspnea, Denies dyspnea on exertion, Denies orthopnea and Denies other (loss of consciousness) Resp Denies cough, Denies dyspnea and Denies dyspnea on exertion GI Denies hematochezia and Denies change in stool character Musc Denies abnormal gait, Denies muscle weakness, Denies numbness, Denies radiating pain into limb and Denies tingling Neuro Denies abnormal gait, Denies dizziness, Denies frequent falls, Denies numbness, Denies tingling and Denies weakness Endo Denies fatigue and Denies palpitations Physical Exam Vital Signs: Last Vital Signs Pulse 53 12/30/24 14:19 BP 130/80 12/30/24 14:19 BMI result Body Mass Index 24.8 Const General: cooperative, healthy appearing, comfortable and no acute distress Orientation/consciousness: patient oriented x3 Neck Neck: Yes normal visual inspection Resp Effort & Inspection: normal respiratory effort Auscultation: clear to auscultation bilaterally, no crackles, no rales, no rhonchi and no wheezes Cardio Jugular venous distension: no JVD Rate: regular rate Rhythm: regular rhythm Heart sounds: S1 normal heart sound present, S2 normal heart sound present, no murmurs and no rubs Neuro General: patient oriented x3 Extrem General: Yes normal to inspection and No no pedal edema Psych Appearance: grossly normal Mental Status: mental status grossly normal Speech and movement: Normal speech and movement present Office Procedures EKG Details: EKG shows sinus bradycardia at 53 beats per minute with incomplete right bundle-branch block with voltage criteria for LVH [id number]-[id number], Complete Assessment & Plan Assessment & Plan (1) Paroxysmal atrial fibrillation: Code(s): I48.0 - Paroxysmal atrial fibrillation Category: Medical Plan: Symptomatic paroxysmal atrial fibrillation due to loss of AV synchrony. She has not had classic symptoms of palpitations or fast heart rate. She has done extremely well with rhythm control approach will continue pursue rhythm control approach. Continue metoprolol therapy. Avoidance of stimulants was discussed. No indication for antiarrhythmic drug therapy at this point time. Continue full oral anticoagulation, currently on Eliquis 5 mg b.i.d.. Semi annual renal function test should be pursued. Annual CBC should be performed. CHADSVASc score of 3. She has no complication to Eliquis therapy and there currently is no indication for Watchman device. (2) HTN (hypertension): Code(s): I10 - Essential (primary) hypertension Category: Medical Qualifiers: Hypertension type: primary hypertension Qualified Code(s): I10 - Essential (primary) hypertension Plan: Hypertension which is currently well optimized on lisinopril and metoprolol therapy. Continue the same. Importance of good control blood pressure was discussed. Continue current therapy. Advised to monitor blood pressure intermittently at home. Goal blood pressure less than 130/84. Low-salt diet was discussed. Will follow up in the clinic in 1 year's time after an echocardiogram. Thank you for allowing me to partake in her care Orders: Orders CA echo transthoracic complete 1 Year I48.0 - Paroxysmal atrial fibrillation Coding Level of Care Code Est Pt Level 4 (13522) Complex EM visit Add On G2211 Diagnoses Paroxysmal atrial fibrillation I48.0 Primary hypertension I10 Hypertension type: primary hypertension CPT Codes EKG - CPT: 00570-[id number], Complete ([id number])
--- OUTSIDE RECORDS SUMMARY | 2024-12-30 16:54 | XMS_ITS | Clinical Summary ---
Author Organization [facility] Facility Address [address] [address] Care Team Providers Care Library Manager Name Role Phone Maegan Steven MD Primary Care Provider [phone] Social History Tobacco Use Types Packs/Day Years [...] patient's age to complete this topic Insurance [facility] Care Teams Library Manager Relationship Specialty Start Date End Date Maegan Steven MD [address] [place] [address] [place] [address] PCP - General Internal Medicine 10/14/22
== END 2024-12-30 14:46 | disposition home or self-care (01) ==
LOC: HO.HCS 14:15
PROVIDERS: PCP Internal Medicine; Visit Provider Internal Medicine Cardiovascular Disease
DX: I48.0 Paroxysmal atrial fibrillation (principal); I10 Essential (primary) hypertension
CPT/HCPCS: 93010; 99214; G2211

== ENCOUNTER → 2024-12-30 14:14 | Outpatient (BNVA) | payer MEDICARE, SELFPAY | PROVIDERS: PCP Internal Medicine; Visit Provider Internal Medicine Cardiovascular Disease | DX: I10 Essential (primary) hypertension (principal); I48.0 Paroxysmal atrial fibrillation | CPT/HCPCS: 93005; 99212 ==

== ENCOUNTER 2025-02-07 14:12 | Outpatient (REF) | payer MEDICARE, SELFPAY ==
--- NOTE | ~2025-02-07 | US_ITS ---
EXAMINATION: US THYROID HISTORY: E04.1 - Nontoxic single thyroid nodule TECHNIQUE: Real-time grayscale ultrasound imaging was performed and images were reviewed. COMPARISON: There are no prior studies available for comparison. FINDINGS: SIZE: The right thyroid lobe measures 3.9 x 2.0 x 1.5 cm. The left thyroid lobe measures 4.2 x 1.3 x 1.2 cm. The isthmus measures 6 mm. FLOW: Flow to the gland is normal. ECHOGENICITY: The echotexture of the gland is homogeneous. NODULES: No nodules are identified. US/US thyroid IMPRESSION: Unremarkable thyroid ultrasound. ACR TI-RADS Guidelines TR1 (0 points): Benign, No follow-up or biopsy required TR2 (2 points): Not Suspicious, No biopsy or follow up indicated TR3 (3 points): Mildly Suspicious, FNA if >= 2.5 cm, Follow if >= 1.5 cm TR4 (4-6 points): Moderately Suspicious, FNA if >= 1.5 cm, Follow if >= 1.0 cm TR5 (>=7 points): Highly Suspicious, FNA if >= 1.0 cm, Follow if >= 0.5 cm Electronically signed by: Richard Cancino MD 02/07/2025 03:09 PM EDT
--- OUTSIDE RECORDS SUMMARY | 2025-02-07 15:34 | XMS_ITS | Clinical Summary ---
Author Organization [facility] Facility Address [address] [address] Care Team Providers Care Relations Coordinator Name Role Phone Maegan Steven MD Primary Care Provider [phone] Social History Tobacco Use Types Packs/Day Years [...] Sigmoidoscopy 10/31/2007 Pneumococcal Vaccine: 50+ Ye ars (1 of 1 - PCV) 2008 Influenza Vaccine (#1) 2025 Hepatitis B Vaccine Aged Out No longe r eligible based on patient's age to complete this topic Insurance [facility] Care Teams Relations Coordinator Relationship Specialty Start Date End Date Maegan Steven MD [address] [place] [address] [place] [address] PCP - General Internal Medicine 10/14/22
--- OUTSIDE RECORDS SUMMARY | 2025-02-07 15:34 | XMS_ITS | Clinical Summary ---
Author Organization [facility] Address [address] [place] [address] Care Team Providers Care Senior Linux Engineer Name Role Phone Unavailable Primary Care Provider Unavailabl e Social History Tobacco Use Types Packs/Day Years Used Date Smoking Tobacco: Never Assessed Comments Unknown Sex and Gender Information Value Date Recorded Sex Assigned at Not on file Legal Sex Female 9:11 PM EST Gender Identity Not on file Sexual Orientation Not on file Plan of Treatment Health Maintenance Due Date Last Done Comments Breast Cancer Screening 1960 DTaP,Tdap,and Td Vaccines (1 - Tdap) 1977 Pneumococcal Vaccine: 50+ Ye ars (1 of 1 - PCV) 2008 Zoster Vaccines (1 of 2) 2008 Colorectal Cancer Screening: Colonoscopy 08/22/2023 Depression Screening 08/22/2023 Hepatitis C Screening 08/22/2023 Osteoporosis Screening (Bone Density Screening) 08/22/2023 Social Influencers of Health Screening 08/22/2023 Falls Risk Assessment 10/31/2023 COVID-19 Vaccine ( - 2023-2 5 season) 2024 Influenza Vaccine (#1) 2025 RSV Immunization Adult Patie nts (1 - 1-dose 75+ series) 2033 HIB Vaccines Aged Out No longer eligi ble based on patient's age to complete this topic HPV Vaccines Aged Out No longer eligi ble based on patient's age to complete this topic Hepatitis A Vaccines Aged Out No long er eligible based on patient's age to complete this topic Hepatitis B Vaccines Aged Out No long er eligible based on patient's age to complete this topic IPV Vaccines Aged Out No longer eligi ble based on patient's age to complete this topic MMR Vaccines Aged Out No longer eligi ble based on patient's age to complete this topic Meningococcal ACWY Vaccine Aged Out N o longer eligible based on patient's age to complete this topic Meningococcal B Vaccine Aged Out No l onger eligible based on patient's age to complete this topic RSV Immunization Patients Un kalani 20 months Aged Out No longer eligible b ased on patient's age to complete this topic Varicella Vaccines Aged Out No longer eligible based on patient's age to complete this topic
== END 2025-02-07 14:13 | disposition home or self-care (01) ==
LOC: HO.US 14:12
PROVIDERS: PCP Internal Medicine; Visit Provider Internal Medicine
DX: E04.1 Nontoxic single thyroid nodule (principal); E03.9 Hypothyroidism, unspecified
CPT/HCPCS: 76536

== ENCOUNTER → 2025-02-07 14:14 | Outpatient (BNV) | payer MEDICARE, SELFPAY | PROVIDERS: PCP Internal Medicine; Visit Provider Radiology Diagnostic Radiology | DX: E04.1 Nontoxic single thyroid nodule (principal) | CPT/HCPCS: 76536 ==

== ENCOUNTER 2025-05-25 13:39 | Outpatient (REF) | payer MEDICARE, SELFPAY ==
--- NOTE | ~2025-05-25 | MM_ITS ---
EXAMINATION: DXA BONE DENSITY AXIAL HISTORY: M89.9 - Disorder of bone, unspecified TECHNIQUE: [employer] Dual energy absorptiometry (DEXA) of the lumbar spine, total left hip, and femoral neck was performed. COMPARISON: Comparison is made with the prior examination dated 02/28/2023. FINDINGS: The bone mineral density of the lumbar spine is 1.087 g/cm2, corresponding to a T-score of -0.8, and a Z-score of 0.6. This is indicative of normal bone mineral density. This represents a BMD change of 0.6% compared to the prior exam. This is not statistically significant. The bone mineral density of the left total hip is 0.828 g/cm2, corresponding to a T-score of -1.4, and a Z-score of -0.3. This is indicative of osteopenia. This represents a BMD change of -3.9% compared to the prior exam. This is statistically significant. The bone mineral density of the left femoral neck is 0.813 g/cm2, corresponding to a T-score of -1.6, and a Z-score of -0.3. This is indicative of osteopenia. This represents a BMD change of -6.7% compared to the prior exam. FRACTURE RISK: The FRAX index suggests a ten year probability of major osteoporotic fracture of 9.8%, and of hip fracture 1.2%. MM/XR DEXA axial skeleton IMPRESSION: Based on bone mineral density, and according to World Health Organization (WHO) criteria, the diagnosis is consistent with osteopenia. Statistically, 68% of repeat scans fall within 1 SD (+/- 0.010 g/cm2 for AP spine L1-L4) and 1 SD (+/- 0.012 g/cm2 for femur total) FRAX is a trademark of the [employer] [place] [facility] Met[employer], a World Health Organization (WHO) Collaborating Center. Electronically signed by: Richard Cancino MD 05/25/2025 02:22 PM EDT
--- OUTSIDE RECORDS SUMMARY | 2025-05-25 17:25 | XMS_ITS | Clinical Summary ---
[facility] Organization [facility] [address] [place] [address] Care Team Providers Care Director Of Construction Name Role Phone Unavailable Primary Care Provider [...] Breast Cancer Screening 1960 Colorectal Cancer Screening: Colonoscopy 1960 DTaP,Tdap,and Td Vaccines (1 - Tdap) 1977 Pneumococcal Vaccine: 50+ Ye ars (1 of 1 - PCV) 2008 Zoster Vaccines (1 of 2) 2008 Hepatitis C Screening 08/22/2023 Osteoporosis Screening (Bone Density Screening) 08/22/2023 Social Influencers of Health Screening 08/22/2023 Falls Risk Assessment 10/31/2023 Depression Screening 07/28/2024 COVID-19 Vaccine ( - 2023-2 5 season) 2025 Influenza Vaccine (#1) 2025 RSV Immunization Adult [...]
--- OUTSIDE RECORDS SUMMARY | 2025-05-25 17:25 | XMS_ITS | Clinical Summary ---
Author Organization [facility] Facility Address [address] [address] Care Team Providers Care Brand Leader Name Role Phone Maegan Steven MD Primary Care Provider [phone] Social History Tobacco Use Types Packs/Day Years [...] patient's age to complete this topic Insurance [facility] Care Teams Brand Leader Relationship Specialty Start Date End Date Maegan Steven MD [address] [place] [address] [place] [address] PCP - General Internal Medicine 10/14/22
== END 2025-05-25 13:40 | disposition home or self-care (01) ==
LOC: HO.MAMMO 13:39
PROVIDERS: PCP Physician Assistant Medical; Visit Provider Internal Medicine
DX: Z13.820 Encounter for screening for osteoporosis (principal); M89.9 Disorder of bone, unspecified; M94.9 Disorder of cartilage, unspecified; M85.89 Other specified disorders of bone density and structure, multiple sites
CPT/HCPCS: 77080

== ENCOUNTER → 2025-05-25 14:00 | Outpatient (BNV) | payer MEDICARE, SELFPAY | PROVIDERS: PCP Physician Assistant Medical; Visit Provider Radiology Diagnostic Radiology | DX: E28.39 Other primary ovarian failure (principal) | CPT/HCPCS: 77080 ==

== ENCOUNTER 2025-06-03 13:42 | Outpatient (REF) | payer MEDICARE, SELFPAY ==
--- OUTSIDE RECORDS SUMMARY | 2025-06-03 15:45 | XMS_ITS | Clinical Summary ---
Author [facility] [address] [place] [address] Care Team Providers Care In Home Caregiver Name Role Phone Unavailable Primary Care Provider [...]
== END 2025-06-03 13:43 | disposition home or self-care (01) ==
LOC: HO.MAMMO 13:42
PROVIDERS: PCP Physician Assistant Medical; Visit Provider Physician Assistant Medical
DX: Z12.31 Encounter for screening mammogram for malignant neoplasm of breast (principal)
CPT/HCPCS: 77063; 77067

== ENCOUNTER → 2025-06-03 14:00 | Outpatient (BNV) | payer MEDICARE, SELFPAY | PROVIDERS: PCP Physician Assistant Medical; Visit Provider Internal Medicine | DX: Z12.31 Encounter for screening mammogram for malignant neoplasm of breast (principal) | CPT/HCPCS: 77063; 77067 ==

== ENCOUNTER 2025-06-16 14:09 | Outpatient (AMB) | payer MEDICARE, SELFPAY ==
--- NOTE | 2025-06-15 17:48 | A.OFFPC_ITS ---
Vital Signs 06/16/25 14:18 Height 5 ft 8 in Weight 160 lb 4 oz BMI 24.4 BP 140/86 H Blood Pressure Location Lt brachial Position Sitting Pulse 57 Pulse Source Pulse Oximeter Temp 98.1 F Temp Source Temporal Artery Scan Pulse Oximetry (%) 91 L Oxygen Delivery Method Room Air Intake Visit Reasons: Annual - see comments Specialty Foods Cook Required: No Accompanied by: Self / Same As Patient Allergies codeine Allergy (Verified 12/23/24 13:43) Unknown Medication List - Last Reconciled 07/10/25 by LEWIS Oliver apixaban (Eliquis) 5 mg PO BID cholecalciferol (vitamin D3) 25 mcg PO DAILY hydroxyzine HCl 25 mg PO TID PRN levothyroxine 25 mcg PO DAILY 90 days lisinopril 20 mg PO DAILY magnesium oxide 500 mg PO DAILY metoprolol tartrate 100 mg PO BID nifedipine ER 30 mg PO DAILY Tobacco use date assessed: 06/16/25 Fall risk assessment: No Falls in past year Last assessed Fall Risk: 06/16/25 Dental Screening Dental Screen Date: 06/16/25 Did you have a dental visit in the last 12 months?: Yes Did you have a dental problem in the last 6 months where you did not have access to dental care?: No HPI HPI Comments History of Present Illness Details History of Present Illness The patient is a 64 year old female with Afib, HTN, Hypothyroidism, and CKD presenting to [facility] care and manage multiple chronic conditions. The patient has a history of atrial fibrillation, for which the patient takes Eliquis and metoprolol. The patient underwent a cardioversion three years ago. For hypertension, the patient is on lisinopril and metoprolol. The patient???s blood pressure is consistently high during office visits and reports anxiety about it. The patient notes that blood pressure was well-controlled on a prior regimen that included metoprolol 100 mg twice daily, lisinopril, and nifedipine. Her BP today was 140/86. The patient was hospitalized in 2022 with electrolyte abnormalities, after which medications were adjusted. The patient has hypothyroidism and is treated with levothyroxine. Recent lab work in November showed a slightly elevated TSH of 5.05, suggesting the thyroid may be underactive. The patient reports losing 40 pounds after stopping wine consumption, which was advised by the boot liner maker due to being on Eliquis. The patient was also found to have mild kidney dysfunction on blood work from November, which could be related to aging or high blood pressure. The patient reports nocturia but denies any other symptoms related to kidney issues. Following the 2022 hospitalization for stomach flu and vomiting, which led to electrolyte loss, the patient was advised to take magnesium and vitamin D. The patient has been taking 500 mg of magnesium but experiences very vivid, exhausting dreams as a side effect. For health maintenance, a Cologuard test was ordered previously but never received. Medical History: - Atrial fibrillation, diagnosed in 2022 - Hypertension - Hypothyroidism - Mild kidney dysfunction - Low magnesium - History of stomach flu with vomiting a nd electrolyte abnormalities, requiring a 2-day hospitalization in 2022 - Has had recent dental work Surgical History: - Cardioversion, 3 years ago - Cataract surgery, recent Medications: - Eliquis for atrial fibrillation - Metoprolol 100 mg twice daily for atri al fibrillation and hypertension - Lisinopril 20 mg for hypertension - Levothyroxine for hypothyroidism - Magnesium 500 mg for low magnesium - Vitamin D Family History: - Hypertension is hereditary from parent s Health Maintenance Lab work will be ordered to check renal function, thyroid function, magnesium, and vitamin D levels. A Cologuard test will be reordered for colon cancer screening. A follow-up appointment is scheduled in two months to review lab results and assess blood pressure response to treatment. Social History - The patient is retired since age 58. 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 - Alcohol: Reports stopping wine consump tion on the advice of the patient's boot liner maker, which resulted in a 40-pound weight loss. Results - Labs from November: - Renal function: Mildly decreased. - TSH: Slightly elevated. - CBC and liver function: Normal. Patient was informed and verbally consented to the use of an ambient scribe for clinic note documentation during this visit. [facility] Medical History (Updated 07/10/25 @ 16:07 by LEWIS Oliver) Anxiety CKD (chronic kidney disease) History of cardioversion HTN (hypertension) Paroxysmal atrial fibrillation Persistent atrial fibrillation Family History Sister A-fib Father CHF (congestive heart failure) Mother CHF (congestive heart failure) Mother No problems noted. Father No problems noted. Social History Housing: House Alcohol intake: never Patient Tobacco Use Status: Former Tobacco user e-Cigarette/Vaping Use: Former Use service: No Current occupational status: retired Cognitive needs: No Hearing needs: No Vision needs: Yes (reading glasses) Questionnaire PHQ-9 Over the last 2 weeks, how often have you been bothered by any of the following problems? 1. Little interest or pleasure in doing things: not at all 2. Feeling down, depressed, or hopeless: not at all 3. Trouble falling or staying asleep, or sleeping too much: not at all 4. Feeling tired or having little energy: not at all 5. Poor appetite or overeating: not at all 6. Feeling bad about yourself - or that you are a failure or have let yourself or your family down: not at all 7. Trouble concentrating on things, such as reading the newspaper or watching television: not at all 8. Moving or speaking so slowly that other people could have noticed. Or the opposite - being so fidgety or restless that you have been moving around a lot more than usual: not at all 9. Thoughts that you would be better off or of hurting yourself in some way: not at all Total score: 0 Depression Screening Interpretation: Negative Depression Screening Done: Yes Source: Developed by Drs. Richard Landon, Blanche Crum, Ranjan Haji and colleagues, with an educational domo from [employer]. Thrive Questionnaire Date Thrive assessed: 06/16/25 I am a: Patient Within the past 12 months, did the food you bought not last and you didn't have the money to get more?: Never true Within the past 12 months, did you worry whether your food would run out before you got money to buy more?: Never true Do you have trouble paying for medicines?: No Do you have trouble getting transportation to medical appointments?: No Do you have trouble paying your heating and electricity bill?: No Do you have trouble taking care of your child, family member or friend?: No Do you have trouble with day-to-day activities such as bathing, preparing meals, shopping, managing finances, etc.?: No Are you currently unemployed and looking for a job?: No Are you interested in more education?: No THRIVE Score: 0 AUDIT C Alcohol Use Questionnaire (AUDIT-C) 1. How often do you have a drink containing alcohol?: Never 3. How often do you have six or more drinks on one occasion?: Never Total Score: 0 LISA-7 AMB Questionnaire LISA-7 Date LISA - 7 assessed: 06/16/25 Feeling nervous, anxious, or on edge: 0 = Not at all Not being able to stop or control worryin = Not at all Worrying too much about different things: 0 = Not at all Trouble relaxin = Not at all Being so restless that it is hard to sit still: 0 = Not at all Becoming easily annoyed or irritable: 0 = Not at all Feeling afraid as if something awful might happen: 0 = Not at all Total LISA-7 score (0-4 normal; 5-9 mild; 10-14 moderate; 15-21 severe): 0 Source: Developed by Drs. Richard Landon, Blanche Crum, Ranjan Haji and colleagues, with an educational domo from [employer]. Review of Systems Narrative Review of Systems - CONSTITUTIONAL: Reports weight loss. - Denies feeling cold or tired. - EYES: Denies vision problems following cataract surgery. - EARS/NOSE/THROAT: Denies hearing problems. - GASTROINTESTINAL: Denies constipation, diarrhea, or heartburn. - GENITOURINARY: Reports nocturia. - MUSCULOSKELETAL: Denies current ankle swelling. - PSYCHIATRIC: Reports stress and anxiety. - Reports vivid, terrible dreams from magnesium supplementation. Physical exam (Primary Care) Vital Signs: Last Vital Signs Temp 98.1 F 06/16/25 14:18 Pulse 57 06/16/25 14:18 BP 140/86 H 06/16/25 14:18 Pulse Ox 91 L 06/16/25 14:18 Oxygen Delivery Method Room Air 06/16/25 14:18 BMI result Body Mass Index 24.4 GENERAL Well developed, Well nourished, in no apparent distress HEENT Head-Normocephalic Eyes- PERRLA, EOMI, Conjuctiva clear, lids WNL Ears- Canals clear, TMs WNL Mouth/Throat-No lesions, no erythema, no exudate Neck- Supple, No lymphadenopathy, thyroid WNL RESPIRATORY Normal I:E, Clear to auscultation CARDIOVASCULAR Regular, rate and rhythm, No murmurs or rubs GASTROINTESTINAL Soft, nontender, normal bowel sounds, no masses MUSCULOSKELETAL Back- nontender Joints- swelling or deformity NEUROLOGICAL Gait normal PSYCHIATRIC Oriented to person, place and time Mood and affect -anxious Appearance WNL Speech WNL Thought processes WNL Tobacco/Smoking Status: Tobacco use Status Tobacco use date assessed 06/16/25 06/15/25 17:50 Patient Tobacco Use Status Former Tobacco user 06/15/25 17:50 e-Cigarette/Vaping Use Former Use 06/15/25 17:50 PHQ-9: PHQ-9 Score PHQ-9: Total score 0 06/20/25 17:18 Depression Screening Interpretation: Negative Thrive Assessment: Date of Thrive Assessment Date Thrive assessed 06/16/25 06/15/25 17:50 Coding Level of Care Code Established Pt Est Pt Level 4 (71796) Patient Type Established Diagnoses Primary hypertension I10 Hypertension type: primary hypertension Paroxysmal atrial fibrillation I48.0 Hypothyroidism, unspecified type E03.9 Hypothyroidism type: unspecified CKD (chronic kidney disease) N18.9 Anxiety F41.9 Time Spent (min) 35 Comment Time spent on chart review, Medication reconciliation, H&P, Patient education, orders. Assessment & Plan Assessment & Plan (1) HTN (hypertension): Comment: BP today was 140/86 Code(s): I10 - Essential (primary) hypertension Category: Medical Qualifiers: Hypertension type: primary hypertension Qualified Code(s): I10 - Essential (primary) hypertension Plan: Patient states it is good at home. Patient will continue current medications. Will monitor. Patient will follow up in 2 months (2) Paroxysmal atrial fibrillation: Code(s): I48.0 - Paroxysmal atrial fibrillation Category: Medical Plan: Patient followed by Cardiology (3) Hypothyroid: Comment: Patient asymptomatic Code(s): E03.9 - Hypothyroidism, unspecified Category: Medical Qualifiers: Hypothyroidism type: unspecified Qualified Code(s): E03.9 - Hypothyroidism, unspecified Plan: Patient will continue current medications. Will monitor. Patient will follow up in 2 months. Will recheck TSH at next visit (4) CKD (chronic kidney disease): Code(s): N18.9 - Chronic kidney disease, unspecified Category: Medical Plan: Will Monitor. Patient to follow up in 2 months or sooner if needed. (5) Anxiety: Code(s): F41.9 - Anxiety disorder, unspecified Category: Medical Plan: Will give Hydroxyzine. Patient to follow up in 2 months or sooner if symptoms persist or worsen. Plan Plan Patient was informed and verbally consented to the use of an ambient scribe for clinic note documentation during this visit. 1. Hypertension The patient's blood pressure is 140/86 mmHg, which is slightly above the goal of 135/85 mmHg or below. We will add nifedipine back to the medication regimen. The current doses of metoprolol and lisinopril will be continued. A refill for metoprolol will be sent to the pharmacy. 2. Mild Chronic Kidney Disease The mild kidney dysfunction noted on labs from November could be due to hypertension or normal aging. Renal function will be rechecked with new labs. If the results remain low, a referral will be placed to a kidney specialist for evaluation. The patient was reassured that the condition is very mild and does not currently require medication. 3. Hypothyroidism The patient's TSH was slightly high on the last check about six months ago, indicating the thyroid may be underactive. A thyroid function panel will be ordered to check the current status before considering any adjustment to the levothyroxine dose. 4. Hypomagnesemia The patient reports vivid, disruptive dreams from the 500 mg magnesium supplement. It is recommended to reduce the dose to 250 mg daily by cutting the pills in half or purchasing a 250 mg formulation. A serum magnesium level will be checked via lab work to assess the need for continued supplementation. 5. Anxiety The patient reports stress and anxiety. Hydroxyzine 10 mg will be prescribed to be taken as needed for anxiety, up to three times per day. Discussion Notes I discussed with the patient the plan to reintroduce nifedipine for better blood pressure control while maintaining the current doses of metoprolol and lisinopril. I explained that we would recheck kidney and thyroid function via lab work before making further decisions, such as a referral to a kidney specialist or adjusting the thyroid medication. We discussed the side effect of vivid dreams from magnesium, and I advised reducing the dose to 250 mg and checking the patient's magnesium level. I agreed to prescribe hydroxyzine 10 mg for as-needed use for anxiety. I also explained that medication side effect lists often include events that occurred during studies but were not caused by the medication, advising the patient not to worry excessively about them. The patient was instructed to complete lab work before the follow-up visit in two months. Patient Instructions - We are adding a new blood pressure medication called nifedipine. - A prescription for this, a refill for your metoprolol, and a new prescription for hydroxyzine for anxiety will be sent to the [facility] pharmacy in [place]. - Take hydroxyzine 10 mg only when you feel you need it for anxiety, up to three times a day. - For your magnesium supplement, please cut the 500 mg pill in half and take only half (250 mg) each day until we check your blood levels. - Please go for blood work before your next appointment. - You can go to the lab in [place] at any time. - We will reorder the Cologuard kit for your colon cancer screening. - Please schedule a follow-up appointment for two months from now to review your blood pressure and lab results. Orders: Orders Magnesium 06/16/25 N18.9 - Chronic kidney disease, unspecified Vitamin D 25-OH Total 06/16/25 Z00.00 - Encounter for general adult medical examination without abnormal findings Referrals Cologuard Test Z12.11 - Encounter for screening for malignant neoplasm of colon Medications: New hydroxyzine HCl 25 mg PO TID PRN 60 tabs 1RF anxiety nifedipine ER 30 mg PO DAILY 90 tabs 1RF for blood pressure Refilled metoprolol tartrate 100 mg PO BID 180 tabs 3RF
[2025-06-16 14:18] VITALS: BP 140/86; PULSE 57; TEMP 36.7; O2SAT 91; BMI 24.4
--- OUTSIDE RECORDS SUMMARY | 2025-06-16 19:33 | XMS_ITS | Clinical Summary ---
Author Organization [facility] ity Address [address] [place] [address] Care Team Providers Care Community Service Officer Coordinator Name Role Phone Unavailable Primary Care Provider [...] Assessment 10/31/2023 Depression Screening 07/28/2024 COVID-19 Vaccine (1 - 2024-2 6 season) 2025 Influenza Vaccine (#1) 2025 RSV [...]
--- OUTSIDE RECORDS SUMMARY | 2025-06-16 19:33 | XMS_ITS | Clinical Summary ---
Author Organization [facility] Facility Address [address] [address] Care Team Providers Care It Engineer Name Role Phone Maegan Steven MD Primary Care Provider [phone] Social History Tobacco Use Types Packs/Day Years [...] patient's age to complete this topic Insurance [facility] Care Teams It Engineer Relationship Specialty Start Date End Date Maegan Steven MD [address] [place] [address] [place] [address] PCP - General Internal Medicine 10/14/22
== END 2025-06-16 14:58 | disposition home or self-care (01) ==
LOC: HO.HMCHD 14:10
PROVIDERS: PCP Internal Medicine; Visit Provider Physician Assistant Medical
DX: I12.9 Hypertensive chronic kidney disease with stage 1 through stage 4 chronic kidney disease, or unspecified chronic kidney disease (principal); I48.0 Paroxysmal atrial fibrillation; E03.9 Hypothyroidism, unspecified; N18.9 Chronic kidney disease, unspecified; F41.9 Anxiety disorder, unspecified

== ENCOUNTER → 2025-06-16 14:09 | Outpatient (BNVA) | payer MEDICARE, SELFPAY | PROVIDERS: PCP Internal Medicine; Visit Provider Physician Assistant Medical | DX: I10 Essential (primary) hypertension (principal); I48.0 Paroxysmal atrial fibrillation; F41.9 Anxiety disorder, unspecified; E03.9 Hypothyroidism, unspecified; N18.9 Chronic kidney disease, unspecified; Z13.31 Encounter for screening for depression; Z13.39 Encounter for screening examination for other mental health and behavioral disorders | CPT/HCPCS: 96127; 99212 ==